=== PATIENT | female | born 1975 | race African-American/Black ===

== ENCOUNTER 2017-05-20 16:53 | Inpatient (IN) | payer OTHER ==
[2017-05-20 18:02] VITALS: BMI 25.7
--- NOTE | 2017-05-20 20:51 | HP ---
CIWA Score - CIWA Score Nausea/Vomitin-No Nausea/No Vomiting Muscle Tremors: 4-Moderate,w/Arms Extend Anxiety: 4-Mod. Anxious/Guarded Agitation: 1-Slight > Activity Paroxysmal Sweats: 3 Orientation: 1-Uncertain about Date Tacttile Disturbances: 0-None Auditory Disturbances: 0-None Visual Disturbances: 0-None Headache: 2-Mild CIWA-Ar Total Score: 15 Admission ROS S - HPI Chief Complaint: Alcohol withdrawal symptoms Allergies/Adverse Reactions: Allergies Allergy/AdvReac Type Severity Reaction Status Date / Time No Known Allergies Allergy Verified 03/07/12 14:40 History of Present Illness: 41 years old female with a long history of alcohol dependence is admitted to detox. Patient has been in previous detox and reports a year of sobriety. She has past medical history of HTN, depression and suicide attempt in 2017. Denies suicidal ideation at this time. Exam Limitations: No Limitations - Ebola screening Have you traveled outside of the country in the last 21 days: No Have you had contact with anyone from an Ebola affected area: No Have you been sick,other than usual withdrawal symptoms: No Do you have a fever: No - Review of Systems Constitutional: Chills, Loss of Appetite, Malaise, Night Sweats, Changes in sleep EENT: reports: Other (right eye redness from trauma) Respiratory: reports: No Symptoms reported Cardiac: reports: No Symptoms Reported GI: reports: Poor Appetite, Poor Fluid Intake, Abdominal cramping : reports: No Symptoms Reported Musculoskeletal: reports: No Symptoms Reported Integumentary: reports: Dryness, Flushing, Sweating Endocrine: reports: No Symptoms Reported Hematology: reports: No Symptoms Reported Psychiatric: reports: Agitated, Anxious Other Systems: Reviewed and Negative Patient History - Patient Medical History Hx Anemia: No Hx Asthma: No Hx Chronic Obstructive Pulmonary Disease (COPD): No Hx Cancer: No Hx Cardiac Disorders: No Hx Congestive Heart Failure: No Hx Hypertension: Yes Hx Hypercholesterolemia: No Hx Pacemaker: No HX Cerebrovascular Accident: No Hx Seizures: No Hx Dementia: No Hx Diabetes: No Hx Gastrointestinal Disorders: No Hx Liver Disease: No Hx Genitourinary Disorders: No Hx Sexually Transmitted Disorders: No Hx Renal Disease (ESRD): No Hx Thyroid Disease: No Hx Human Immunodeficiency Virus (HIV): No (Negative 2016) Hx Hepatitis C: No (Negative 2017) Hx Depression: Yes Hx Suicide Attempt: No Hx Bipolar Disorder: Yes Hx Schizophrenia: Yes - Patient Surgical History Past Surgical History: No Hx Neurologic Surgery: No Hx Cataract Extraction: No Hx Cardiac Surgery: No Hx Lung Surgery: No Hx Breast Surgery: No Hx Breast Biopsy: No Hx Abdominal Surgery: No Hx Appendectomy: No Hx Cholecystectomy: No Hx Genitourinary Surgery: No Hx Section: No Hx Orthopedic Surgery: No Anesthesia Reaction: No - PPD History Previous Implant?: Yes Date: 03/09/12 PPD to be Administered?: Yes - Reproductive History Patient is a Female of Child Bearing Age (11 -55 yrs old): Yes Last Menstrual Period: 05/19/17 Patient : No - Smoking Cessation Smoking history: Current every day smoker Have you smoked in the past 12 months: Yes Aproximately how many cigarettes per day: 10 Hx Chewing Tobacco Use: No Initiated information on smoking cessation: Yes 'Breaking Loose' booklet given: 05/20/17 - Substance & Tx. History Hx Alcohol Use: Yes Hx Substance Use: Yes Substance Use Type: Cocaine, Marijuana Hx Substance Use Treatment: Yes ([facility]) - Substances Abused Cocaine Route: Smoking Frequency: 3-6 times per week Amount used: $80 Age of first use: 24 Date of Last Use: 05/19/17 Marijuana/Hashish Route: Smoking Frequency: Daily Amount used: 2 blounts Age of first use: 17 Date of Last Use: 05/19/17 Alcohol Route: Oral Frequency: Daily Amount used: 12 beers Age of first use: 13 Date of Last Use: 05/20/17 Family Disease History - Family Disease History Family Disease History: Respiratory: Mother (COPD- ) Admission Physical Exam [facility] - Vital Signs Vital Signs: Vital Signs - 24 hr 05/20/17 17:56 Temperature 98.1 F Pulse Rate 84 Respiratory 18 Rate Blood Pressure 140/95 - Physical General Appearance: Yes: Moderate Distress HEENTM: Yes: EOMI, Normal Voice, BER[place] Respiratory: Yes: Lungs Clear, Normal Breath Sounds, No Respiratory Distress Neck: Yes: Supple Breast: Yes: Breast Exam Deferred Cardiology: Yes: Regular Rate, S1, S2 Abdominal: Yes: Normal Bowel Sounds, Soft Genitourinary: Yes: Within Normal Limits Back: Yes: Within Normal Limits Musculoskeletal: Yes: Within Normal Limits Extremities: Yes: Tremors Neurological: Yes: Alert, Normal Mood/Affect, Normal Response Integumentary: Yes: Dry Lymphatic: Yes: Within Normal Limits - Diagnostic (1) Alcohol dependence with uncomplicated withdrawal Current Visit: Yes Status: Chronic (2) Cocaine dependence Current Visit: Yes Status: Chronic (3) Essential hypertension Current Visit: Yes Status: Chronic (4) cannabis dependence Current Visit: Yes Status: Chronic Cleared for Admission [facility] - Detox or Rehab [facility] Level of Care: Medically Managed Detox Regimen/Protocol: Librium [facility] Breath Alcohol Content Breath Alcohol Content: 0.043 Urine Pregancy Test - Result Urine Test Results: Negative- NO Line Present Urine Drug Screen - Results Drug Screen Negative: No Urine Drug Screen Results: REGINALDO-Cocaine
[2017-05-20] MEDS ORDERED: NICOTINE POLACRILEX 2 MG GUM BUC PRN (21:05)
[2017-05-20] MEDS ORDERED: MAGNESIUM CITRATE 300 ML BOTTLE PO PRN (21:05)
[2017-05-20] MEDS ORDERED: IBUPROFEN 400 MG TABLET (FP) PO PRN (21:05)
[2017-05-20] MEDS ORDERED: ACETAMINOPHEN 325 MG TABLET (FP) PO PRN (21:05)
[2017-05-20] MEDS ORDERED: chlordiazePOXIDE HCL 25 MG CAPSULE PO PRN (21:05)
[2017-05-20] MEDS ORDERED: LOPERAMIDE HCL 2 MG CAPSULE PO PRN (21:05)
[2017-05-20] MEDS ORDERED: MAG HYDROX/AL HYDROX/SIMETH 30 ML UNIT-DOSE CUP PO PRN (21:05)
[2017-05-20] MEDS ORDERED: guaiFENesin/D-METHORPHAN HB 10 ML UNIT-DOSE CUPS PO PRN (21:05)
[2017-05-20] MEDS ORDERED: MENTHOL/PHENOL 1 EACH UD MM PRN (21:05)
[2017-05-20] MEDS ORDERED: P-EPHED 60MG/TRIPROLIDI 2.5MG TABLET PO PRN (21:05)
[2017-05-21] MEDS: chlordiazePOXIDE HCL 25 MG CAPSULE PO SCH ×5 (00:56→22:21)
[2017-05-21] MEDS: THIAMINE HCL 100 MG TABLET (FP) PO SCH ×2 (01:20→22:21)
[2017-05-21] MEDS ORDERED: cloNIDine HCL 0.1 MG TABLET PO ONE (06:54)
--- NOTE | 2017-05-21 07:40 | CONSULT ---
[facility] Psychiatric Consult - Data Date of interview: 05/21/17 Admission source: [facility] Identifying data: This is 41 years old female with Schizophrenia, multiple psychiatric hospitalization history , intoxicated with: Alcohol, Cannabis and Nicotine Substance Abuse History: - Smoking Cessation. Smoking history: Current every day smoker. Have you smoked in the past 12 months: Yes. Aproximately how many cigarettes per day: 10. Hx Chewing Tobacco Use: No. Initiated information on smoking cessation: Yes. 'Breaking Loose' booklet given: 05/20/17. - Substance & Tx. History. Hx Alcohol Use: Yes. Hx Substance Use: Yes. Substance Use Type : Cocaine, Marijuana. Hx Substance Use Treatment: Yes ([facility] - Substances Abused. Cocaine. Route: Smoking. Frequency: 3-6 times per week. Amount used: $80. Age of first use: 24. Date of Last Use: 05/19/17. Marijuana/ Hashish. Route: Smoking. Frequency: Daily. Amount used: 2 blounts. Age of first use: 17. Date of Last Use: 05/19/17 Medical History: HTN, Psychiatric History: Patient reports hisatory of sSCHIZOPHRENIA , WITH MULTIPLE PSYCHIATRIC ADMISSIONS , MOST RECENTLY AT [id number] ON [address], REPORTS TAKING PRIOR TO ADMISSION: DEPAKOTE 250MG POQD, 500MG PO QHS. RISPERDAL 1MG POQD Physical/Sexual Abuse/Trauma History: Denies Additional Comment: DEPAKOTE 250MG POQD, 500MG PO QHS. RISPERDAL 1MG POQD Mental Status Exam - Mental Status Exam Alert and Oriented to: Person Cognitive Function: Fair Patient Appearance: Unkempt Mood: Sad Affect: Flat Patient Behavior: Sedated Speech Pattern: Delayed Voice Loudness: Mildly Soft/Quiet Thought Process: Circumstantial Thought Disorder: Being Controlled Hallucinations: Denies Suicidal Ideation: Denies Homicidal Ideation: Denies Insight/Judgement: Fair Sleep: Difficulty falling asleep Appetite: Weight loss Muscle strength/Tone: Mild Hypotonicity Gait/Station: Shuffling Additional Comments: DEPAKOTE 250MG POQD, 500MG PO QHS. RISPERDAL 1MG POQD Psychiatric Findings - Problem List ([place] 1, 2,3) (1) Alcohol dependence with uncomplicated withdrawal Current Visit: Yes Status: Chronic (2) Cocaine dependence Current Visit: Yes Status: Chronic (3) cannabis dependence Current Visit: Yes Status: Chronic (4) Alcohol dependence Current Visit: No Status: Active (5) bipolar disorder with depression Current Visit: No Status: Active - Initial Treatment Plan Initial Treatment Plan: DEPAKOTE 250MG POQD, 500MG PO QHS. RISPERDAL 1MG POQD
--- NOTE | 2017-05-21 09:54 | PN ---
BHS CIWA - CIWA Score Nausea/Vomitin Muscle Tremors: 3 Anxiety: 2 Agitation: 2 Paroxysmal Sweats: 1-Minimal Palms Moist Orientation: 0-Oriented Tacttile Disturbances: 1-Very Mild Itch/Numbness Auditory Disturbances: 1-Very Mild Visual Disturbances: 0-None Headache: 2-Mild CIWA-Ar Total Score: 15 BHS Progress Note (SOAP) Subjective: ALERT,IRRITABLE,ANXIOUS,INTERRUPTED SLEEP,TREMOR,PAIN IN THE BODY AND BACK Objective: 05/21/17 09:49 Vital Signs Temperature 97.5 F L 05/21/17 06:00 Pulse Rate 60 05/21/17 07:30 Respiratory Rate 18 05/21/17 07:30 Blood Pressure 152/92 05/21/17 07:30 O2 Sat by Pulse Oximetry (%) EKG SINUS BRADYCARDIA 59/MIN INVERTED T IN 2,3.AVF,V5,V6 NO CHEST PAIN,NO SOB,NO DIZZINESS LABS PENDING Assessment: 05/21/17 09:53 WITHDRAWAL SYMPTOM Plan: CONTINUE DETOX
[2017-05-21 10:20] LABS: HEMATOCRIT 38.5 % (32.4-45.2); HEMOGLOBIN 11.8 GM/dL (10.7-15.3); MCH 23.4 pg (25.7-33.7); MCHC 30.7 g/dl (32.0-36.0); MEAN CELL VOLUME 76.2 fl (80-96); MEAN PLT VOLUME 9.6 fl (7.5-11.1); PLATELET COUNT 163 K/MM3 (134-434); RBC 5.05 M/mm3 (3.60-5.2); RDW 15.9 % (11.6-15.6); WHITE BLOOD COUNT 4.7 K/mm3 (4.0-10.0)
[2017-05-21 10:40] LABS: CHLORIDE 101 mmol/L (98-107); POTASSIUM 3.6 mmol/L (3.5-5.1); SODIUM 140 mmol/L (136-145)
[2017-05-21 10:51] LABS: ALBUMIN 3.2 g/dl (3.4-5.0); ALK PHOS 90 U/L (45-117); ANION GAP 6 (8-16); BILIRUBIN,TOTAL 0.6 mg/dL (0.2-1.0); BLOOD UREA NITROGEN 19 mg/dL (7-18); CALCIUM 8.7 mg/dL (8.5-10.1); CO2 33 mmol/L (21-32); GLUCOSE,RANDOM 114 mg/dL (74-106); SGOT/AST 28 U/L (15-37); SGPT/ALT 31 U/L (12-78); TOT PROT 6.8 g/dl (6.4-8.2)
[2017-05-21] MEDS: risperiDONE 1 MG TABLET (FP) PO SCH (10:54)
[2017-05-21] MEDS: DIVALPROEX SODIUM 250 MG TABLET E.C. (FP) PO SCH (10:54)
[2017-05-21] MEDS: PRENATAL VITAMINS W/ FOLIC ACID TABLET (FP) PO SCH (10:54)
[2017-05-21] MEDS: NICOTINE 14 MG/24 HOURS TOPICAL PATCH TD SCH (10:54)
--- NOTE | 2017-05-21 11:03 | EKG ---
Test Reason : Blood Pressure : / mmHG Vent. Rate : 065 BPM Atrial Rate : 065 BPM P-R Int : 144 ms QRS Dur : 076 ms QT Int : 410 ms P-R-T Axes : 027 -51 031 degrees QTc Int : 426 ms NORMAL SINUS RHYTHM LEFT ANTERIOR FASCICULAR BLOCK MINIMAL VOLTAGE CRITERIA FOR LVH, MAY BE NORMAL VARIANT NONSPECIFIC ST AND T WAVE ABNORMALITY ABNORMAL ECG NO PREVIOUS ECGS AVAILABLE Confirmed by FRANKIE FREEMAN, HILDA ([id number]) on 05/21/2017 11:03:07 AM Referred By: Confirmed By:HILDA DAVID MD
--- NOTE | 2017-05-21 14:54 | EKG ---
Test Reason : Blood Pressure : / mmHG Vent. Rate : 059 BPM Atrial Rate : 059 BPM P-R Int : 144 ms QRS Dur : 076 ms QT Int : 456 ms P-R-T Axes : 018 -52 -39 degrees QTc Int : 451 ms SINUS BRADYCARDIA LEFT ANTERIOR FASCICULAR BLOCK MINIMAL VOLTAGE CRITERIA FOR LVH, MAY BE NORMAL VARIANT T WAVE ABNORMALITY, CONSIDER LATERAL ISCHEMIA ABNORMAL ECG WHEN COMPARED WITH ECG OF 21-MAY-2017 00:35, T WAVE INVERSION MORE EVIDENT IN INFERIOR LEADS Confirmed by HILDA DAVID MD ([id number]) on 05/21/2017 2:54:14 PM Referred By: Confirmed By:HILDA DAVID MD
[2017-05-21 18:17] LABS: URINE APPEARANCE CLEAR; URINE BILIRUBIN NEGATIVE (NEGATIVE); URINE BLOOD NEGATIVE (NEGATIVE); URINE COLOR STRAW; URINE GLUCOSE (UA) NEGATIVE (NEGATIVE); URINE KETONE NEGATIVE (NEGATIVE); URINE LEUK ESTERASE NEGATIVE (NEGATIVE); URINE NITRITE NEGATIVE (NEGATIVE); URINE PROTEIN NEGATIVE (NEGATIVE); URINE UROBILINOGEN NEGATIVE mg/dL (0.2-1.0)
[2017-05-21] MEDS: DIVALPROEX SODIUM 500 MG TABLET E.C. PO SCH (22:21)
[2017-05-22] MEDS: chlordiazePOXIDE HCL 25 MG CAPSULE PO SCH ×3 (05:45→17:27)
[2017-05-22] MEDS: PRENATAL VITAMINS W/ FOLIC ACID TABLET (FP) PO SCH (10:46)
[2017-05-22] MEDS: DIVALPROEX SODIUM 250 MG TABLET E.C. (FP) PO SCH (10:47)
[2017-05-22] MEDS: NICOTINE 14 MG/24 HOURS TOPICAL PATCH TD SCH (10:47)
[2017-05-22] MEDS: risperiDONE 1 MG TABLET (FP) PO SCH (10:47)
[2017-05-22] MEDS: MAGNESIUM HYDROX 2400MG/30ML ORAL SUSPENSION 30 ML CUP PO PRN (10:49)
--- NOTE | 2017-05-22 14:25 | PN ---
S CIWA - CIWA Score Nausea/Vomitin Muscle Tremors: 3 Anxiety: 2 Agitation: 2 Paroxysmal Sweats: 1-Minimal Palms Moist Orientation: 0-Oriented Tacttile Disturbances: 1-Very Mild Itch/Numbness Auditory Disturbances: 1-Very Mild Visual Disturbances: 0-None Headache: 2-Mild CIWA-Ar Total Score: 15 BHS Progress Note (SOAP) Subjective: ALERT,IRRITABLE,ANXIOUS,INTERRUPTED SLEEP,TREMOR Objective: 05/22/17 14:23 Vital Signs Temperature 97.9 F 05/22/17 10:19 Pulse Rate 69 05/22/17 10:19 Respiratory Rate 18 05/22/17 10:19 Blood Pressure 156/99 05/22/17 10:19 O2 Sat by Pulse Oximetry (%) 05/22/17 14:24 Laboratory Last Values WBC 4.7 K/mm3 (4.0-10.0) 05/21/17 07:00 RBC 5.05 M/mm3 (3.60-5.2) 05/21/17 07:00 Hgb 11.8 GM/dL (10.7-15.3) 05/21/17 07:00 Hct 38.5 % (32.4-45.2) 05/21/17 07:00 MCV 76.2 fl (80-96) L 05/21/17 07:00 MCH 23.4 pg (25.7-33.7) L 05/21/17 07:00 MCHC 30.7 g/dl (32.0-36.0) L 05/21/17 07:00 RDW 15.9 % (11.6-15.6) H 05/21/17 07:00 Plt Count 163 K/MM3 (134-434) D 05/21/17 07:00 MPV 9.6 fl (7.5-11.1) 05/21/17 07:00 Sodium 140 mmol/L (136-145) 05/21/17 07:00 Potassium 3.6 mmol/L (3.5-5.1) 05/21/17 07:00 Chloride 101 mmol/L (98-107) 05/21/17 07:00 Carbon Dioxide 33 mmol/L (21-32) H 05/21/17 07:00 Anion Gap 6 (8-16) L 05/21/17 07:00 BUN 19 mg/dL (7-18) H 05/21/17 07:00 Creatinine 1.0 mg/dL (0.55-1.02) 05/21/17 07:00 Creat Clearance w eGFR > 60 (>60) 05/21/17 07:00 Random Glucose 114 mg/dL (74-106) H 05/21/17 07:00 Calcium 8.7 mg/dL (8.5-10.1) 05/21/17 07:00 Total Bilirubin 0.6 mg/dL (0.2-1.0) D 05/21/17 07:00 AST 28 U/L (15-37) 05/21/17 07:00 ALT 31 U/L (12-78) 05/21/17 07:00 Alkaline Phosphatase 90 U/L (45-117) 05/21/17 07:00 Total Protein 6.8 g/dl (6.4-8.2) 05/21/17 07:00 Albumin 3.2 g/dl (3.4-5.0) L 05/21/17 07:00 Urine Color Straw 05/20/17 17:00 Urine Appearance Clear 05/20/17 17:00 Urine pH 6.0 (5.0-8.0) 05/20/17 17:00 Ur Specific [place] 1.006 (1.001-1.035) 05/20/17 17:00 Urine Protein Negative (NEGATIVE) 05/20/17 17:00 Urine Glucose (UA) Negative (NEGATIVE) 05/20/17 17:00 Urine Ketones Negative (NEGATIVE) 05/20/17 17:00 Urine Blood Negative (NEGATIVE) 05/20/17 17:00 Urine Nitrite Negative (NEGATIVE) 05/20/17 17:00 Urine Bilirubin Negative (NEGATIVE) 05/20/17 17:00 Urine Urobilinogen Negative mg/dL (0.2-1.0) 05/20/17 17:00 Ur Leukocyte Esterase Negative (NEGATIVE) 05/20/17 17:00 RPR Titer Nonreactive (NONREACTIVE) 05/21/17 07:00 Hepatitis C Antibody <0.1 s/co ratio (0.0-0.9) 05/20/17 07:00 HIV 1&2 Antibody Screen Negative 05/21/17 08:00 HIV P24 Antigen Negative 05/21/17 08:00 Assessment: 05/22/17 14:24 WITHDRAWAL SYMPTOM Plan: CONTINUE DETOX
[2017-05-22] MEDS: DIVALPROEX SODIUM 500 MG TABLET E.C. PO SCH (22:31)
[2017-05-22] MEDS: chlordiazePOXIDE 5 MG CAPSULE PO SCH (22:31)
[2017-05-22] MEDS: THIAMINE HCL 100 MG TABLET (FP) PO SCH (22:31)
[2017-05-22] MEDS: amLODIPine BESYLATE 5 MG TABLET (FP) PO SCH (23:30)
[2017-05-23] MEDS: chlordiazePOXIDE 5 MG CAPSULE PO SCH ×3 (05:49→17:26)
[2017-05-23] MEDS: DIVALPROEX SODIUM 250 MG TABLET E.C. (FP) PO SCH (10:51)
[2017-05-23] MEDS: amLODIPine BESYLATE 5 MG TABLET (FP) PO SCH (10:52)
[2017-05-23] MEDS: PRENATAL VITAMINS W/ FOLIC ACID TABLET (FP) PO SCH (10:52)
[2017-05-23] MEDS: risperiDONE 1 MG TABLET (FP) PO SCH (10:52)
[2017-05-23] MEDS: NICOTINE 14 MG/24 HOURS TOPICAL PATCH TD SCH (10:52)
--- NOTE | 2017-05-23 13:32 | PN ---
S Progress Note (SOAP) Subjective: ALERT,IRRITABLE,ANXIOUS,INTERRUPTED SLEEP Objective: 05/23/17 13:31 Vital Signs Temperature 97.7 F 05/23/17 10:16 Pulse Rate 72 05/23/17 10:16 Respiratory Rate 20 05/23/17 10:16 Blood Pressure 156/85 05/23/17 10:16 O2 Sat by Pulse Oximetry (%) Assessment: 05/23/17 13:31 WITHDRAWAL SYMPTOM Plan: CONTINUE DETOX,DISCHARGE IN AM
[2017-05-23] MEDS: MAGNESIUM HYDROX 2400MG/30ML ORAL SUSPENSION 30 ML CUP PO PRN (19:46)
[2017-05-23] MEDS: chlordiazePOXIDE HCL 10 MG CAPSULE PO SCH (22:34)
[2017-05-23] MEDS: THIAMINE HCL 100 MG TABLET (FP) PO SCH (22:34)
[2017-05-23] MEDS: DIVALPROEX SODIUM 500 MG TABLET E.C. PO SCH (22:34)
[2017-05-24] MEDS: chlordiazePOXIDE HCL 10 MG CAPSULE PO SCH ×2 (06:30→10:49)
[2017-05-24 10:20] VITALS: BP 143/98; PULSE 75; TEMP 97.2
[2017-05-24] MEDS: risperiDONE 1 MG TABLET (FP) PO SCH (10:49)
[2017-05-24] MEDS: amLODIPine BESYLATE 5 MG TABLET (FP) PO SCH (10:49)
[2017-05-24] MEDS: PRENATAL VITAMINS W/ FOLIC ACID TABLET (FP) PO SCH (10:49)
[2017-05-24] MEDS: DIVALPROEX SODIUM 250 MG TABLET E.C. (FP) PO SCH (10:49)
[2017-05-24] MEDS: NICOTINE 14 MG/24 HOURS TOPICAL PATCH TD SCH (10:50)
--- NOTE | 2017-05-24 10:50 | DS ---
[facility] Detox Discharge Summary Admission Date: 05/20/17 Discharge Date: 05/24/17 - History Present History: Alcohol Dependence - Physical Exam Results Vital Signs: Vital Signs Temperature 97.2 F L 05/24/17 10:20 Pulse Rate 75 05/24/17 10:20 Respiratory Rate 18 05/24/17 10:20 Blood Pressure 143/98 05/24/17 10:20 O2 Sat by Pulse Oximetry (%) Pertinent Admission Physical Exam Findings: withdrawal sx Vital Signs Temperature 97.2 F L 05/24/17 10:20 Pulse Rate 75 05/24/17 10:20 Respiratory Rate 18 05/24/17 10:20 Blood Pressure 143/98 05/24/17 10:20 O2 Sat by Pulse Oximetry (%) Laboratory Last Values WBC 4.7 K/mm3 (4.0-10.0) 05/21/17 07:00 RBC 5.05 M/mm3 (3.60-5.2) 05/21/17 07:00 Hgb 11.8 GM/dL (10.7-15.3) 05/21/17 07:00 Hct 38.5 % (32.4-45.2) 05/21/17 07:00 MCV 76.2 fl (80-96) L 05/21/17 07:00 MCH 23.4 pg (25.7-33.7) L 05/21/17 07:00 MCHC 30.7 g/dl (32.0-36.0) L 05/21/17 07:00 RDW 15.9 % (11.6-15.6) H 05/21/17 07:00 Plt Count 163 K/MM3 (134-434) D 05/21/17 07:00 MPV 9.6 fl (7.5-11.1) 05/21/17 07:00 Sodium 140 mmol/L (136-145) 05/21/17 07:00 Potassium 3.6 mmol/L (3.5-5.1) 05/21/17 07:00 Chloride 101 mmol/L (98-107) 05/21/17 07:00 Carbon Dioxide 33 mmol/L (21-32) H 05/21/17 07:00 Anion Gap 6 (8-16) L 05/21/17 07:00 BUN 19 mg/dL (7-18) H 05/21/17 07:00 Creatinine 1.0 mg/dL (0.55-1.02) 05/21/17 07:00 Creat Clearance w eGFR > 60 (>60) 05/21/17 07:00 Random Glucose 114 mg/dL (74-106) H 05/21/17 07:00 Calcium 8.7 mg/dL (8.5-10.1) 05/21/17 07:00 Total Bilirubin 0.6 mg/dL (0.2-1.0) D 05/21/17 07:00 AST 28 U/L (15-37) 05/21/17 07:00 ALT 31 U/L (12-78) 05/21/17 07:00 Alkaline Phosphatase 90 U/L (45-117) 05/21/17 07:00 Total Protein 6.8 g/dl (6.4-8.2) 05/21/17 07:00 Albumin 3.2 g/dl (3.4-5.0) L 05/21/17 07:00 Urine Color Straw 05/20/17 17:00 Urine Appearance Clear 05/20/17 17:00 Urine pH 6.0 (5.0-8.0) 05/20/17 17:00 Ur Specific [place] 1.006 (1.001-1.035) 05/20/17 17:00 Urine Protein Negative (NEGATIVE) 05/20/17 17:00 Urine Glucose (UA) Negative (NEGATIVE) 05/20/17 17:00 Urine Ketones Negative (NEGATIVE) 05/20/17 17:00 Urine Blood Negative (NEGATIVE) 05/20/17 17:00 Urine Nitrite Negative (NEGATIVE) 05/20/17 17:00 Urine Bilirubin Negative (NEGATIVE) 05/20/17 17:00 Urine Urobilinogen Negative mg/dL (0.2-1.0) 05/20/17 17:00 Ur Leukocyte Esterase Negative (NEGATIVE) 05/20/17 17:00 RPR Titer Nonreactive (NONREACTIVE) 05/21/17 07:00 Hepatitis C Antibody <0.1 s/co ratio (0.0-0.9) 05/20/17 07:00 HIV 1&2 Antibody Screen Negative 05/21/17 08:00 HIV P24 Antigen Negative 05/21/17 08:00 lab noted - Treatment Hospital Course: Detox Protocol Followed, Detoxed Safely, Responded well, Discharged Condition Good, Rehab Referral Accepted Patient has Accepted a Rehab Referral to: as per counselor arranged - Medication Discharge Medications: Ambulatory Orders Divalproex [Depakote -] 250 mg PO DAILY #30 tablet.ec 05/21/17 Divalproex [Depakote -] 500 mg PO HS #30 tablet.ec 05/21/17 Risperidone [Risperdal -] 1 mg PO DAILY #30 tablet 05/21/17 - Diagnosis (1) Alcohol dependence with uncomplicated withdrawal Current Visit: Yes Status: Acute - AMA Did Patient Leave Against Medical Advice: No
[2017-05-24] MEDS ORDERED: SIMETHICONE 80 MG TAB.CHEW (FP) PO PRN (11:00)
[2017-05-24] MEDS ORDERED: DOCUSATE SODIUM 100 MG CAPSULE (FP) PO SCH (14:00)
[2017-05-24] MEDS ORDERED: SENNOSIDES 8.6MG TABLET (FP) PO SCH (22:00)
== END 2017-05-24 11:16 | disposition other institution (70) | DRG 774 ==
LOC: YASAS 16:53 → UNDOADMIN 20:03 → Y6N 20:03
PROVIDERS: ADMIT Internal Medicine; ATTEND Internal Medicine
PROC: HZ2ZZZZ Detoxification Services for Substance Abuse Treatment (ICD-10-PCS; principal; 2017-05-20)
PROC: HZ2ZZZZ Detoxification Services for Substance Abuse Treatment (ICD-10-PCS; 2017-05-20)
DX: F10.230 Alcohol dependence with withdrawal, uncomplicated (principal); F14.20 Cocaine dependence, uncomplicated; F12.20 Cannabis dependence, uncomplicated; F20.9 Schizophrenia, unspecified; F32.89 Other specified depressive episodes; F31.89 Other bipolar disorder
CPT/HCPCS: 36415; 80053; 81003; 85027; 86593; 86803; 87389; 93005; 93010; J0735; J2794

== ENCOUNTER 2017-05-24 12:48 | Inpatient (IN) | payer OTHER ==
[2017-05-24] MEDS ORDERED: P-EPHED 60MG/TRIPROLIDI 2.5MG TABLET PO PRN (14:15)
[2017-05-24] MEDS ORDERED: MAGNESIUM CITRATE 300 ML BOTTLE PO PRN (14:15)
[2017-05-24] MEDS ORDERED: MAGNESIUM HYDROX 2400MG/30ML ORAL SUSPENSION 30 ML CUP PO PRN (14:15)
[2017-05-24] MEDS ORDERED: ACETAMINOPHEN 325 MG TABLET (FP) PO PRN (14:15)
[2017-05-24] MEDS ORDERED: MENTHOL/PHENOL 1 EACH UD MM PRN (14:15)
[2017-05-24] MEDS ORDERED: LOPERAMIDE HCL 2 MG CAPSULE PO PRN (14:15)
[2017-05-24] MEDS ORDERED: NICOTINE POLACRILEX 2 MG GUM BUC PRN (14:15)
[2017-05-24] MEDS ORDERED: guaiFENesin/D-METHORPHAN HB 10 ML UNIT-DOSE CUPS PO PRN (14:15)
--- NOTE | 2017-05-24 14:15 | HP ---
[facility]UANPABLO [facility]REEM[facility] Rehab Assess/Revision - Admission History Admitted to Rehab from: [facility] Date of Admission to Rehab: 05/24/17 - Vital signs Vital Signs: Vital Signs Period Temp Pulse Resp BP Sys/[place] Pulse Ox Last 24 Hr 98.2 F 87 16 119/76 - Findings Detox History & Physical reviewed: Yes Concur with findings: Yes Comments/Additional Findings: FOR REHAB PROTOCOL Inpatient Rehab Admission - Initial Determination Are CD services needed?: Yes Free of communicable disease: Yes Not in need of hospitalization: Yes - Rehab Admission Criteria Previous failed treatment: Yes Poor recovery environment: Yes Comorbidities: Yes Lacks judgement: No Patient is meeting Inpatient Rehab admission criteria:: Yes
[2017-05-24] MEDS: THIAMINE HCL 100 MG TABLET (FP) PO SCH (21:28)
[2017-05-24] MEDS: DIVALPROEX SODIUM 500 MG TABLET E.C. PO SCH (21:28)
[2017-05-25] MEDS: risperiDONE 1 MG TABLET (FP) PO SCH (10:09)
[2017-05-25] MEDS: PRENATAL VITAMINS W/ FOLIC ACID TABLET (FP) PO SCH (10:09)
[2017-05-25] MEDS: DIVALPROEX SODIUM 250 MG TABLET E.C. (FP) PO SCH (10:09)
[2017-05-25] MEDS: amLODIPine BESYLATE 5 MG TABLET (FP) PO SCH (10:09)
[2017-05-25] MEDS: NICOTINE 14 MG/24 HOURS TOPICAL PATCH TD SCH (10:09)
--- NOTE | 2017-05-25 13:17 | HP ---
Psychiatrist Admission - Data Date of interview: 05/25/17 Admission source: [address] [place] [address] detox Identifying data: This is the second admission to [address] [place] [address] for this 41 years old AA single female mother of 4 (children reside with father in [facility]).Patient resides with boyfriend,supported by him. Medical History: HTN. Psychiatric History: First contact with psychiatrist was at 13 years old due to first psychotic episode(visual hallucinations,bizarre behavior).Patient was admitted to [facility] in [facility].She was dx with Schizoaffective disorder ,ADHD.She reports more than 20 psychiatric hospitalizations,most recent admission was last year to [facility] due to suicidal behavior, auditory hallucinations.Patient stopped to see her psychiatrist about 1 year ago ,obtaining psychotropic medications from local ER.Restarted Risperidone 1 mg po hs and Depakote 250 mg po am and 500 mg po hs prescribed by while in detox on [address] [place] [address]. Physical/Sexual Abuse/Trauma History: denies Vital Signs: Vital Signs - 24 hr 05/24/17 05/25/17 05/25/17 14:11 00:30 03:30 Temperature 98.2 F Pulse Rate 87 Respiratory 16 18 18 Rate Blood Pressure 119/76 05/25/17 05/25/17 07:09 09:14 Temperature 97.5 F L Pulse Rate 74 84 Respiratory 18 Rate Blood Pressure 131/90 136/86 Allergies/Adverse Reactions: Allergies Allergy/AdvReac Type Severity Reaction Status Date / Time No Known Allergies Allergy Verified 03/07/12 14:40 Date of last physical exam: 05/07/17 Concur with the findings of this exam: Yes - Substance Abuse/Tx History Hx Alcohol Use: Yes (reports drinking since 16 yo,6 packs of beer&vodka daily) Hx Substance Use: Yes (crack/cocaine since 25 yo,marijuana since 17yo) Substance Use Type: Alcohol, Cocaine, Marijuana Hx Substance Use Treatment: Yes (left AMA this program in 2011,longest abstinence 1 year) Mental Status Exam - Mental Status Exam Alert and Oriented to: Time, Place, Person Cognitive Function: Grossly Intact Patient Appearance: Unkempt Mood: Euthymic Affect: Normal Range Patient Behavior: Cooperative Speech Pattern: Clear Voice Loudness: Normal Thought Process: Goal Oriented Thought Disorder: Being Controlled Hallucinations: Denies Suicidal Ideation: Denies Homicidal Ideation: Denies Insight/Judgement: Fair Sleep: Fair Appetite: Good Muscle strength/Tone: Normal Gait/Station: Normal Psychiatric Findings - Problem List ([place] 1, 2,3) (1) Cocaine dependence Current Visit: Yes Status: Chronic (2) Essential hypertension Current Visit: Yes Status: Chronic (3) Alcohol dependence Current Visit: No Status: Chronic (4) cannabis dependence Current Visit: Yes Status: Chronic (5) Schizoaffective disorder Current Visit: Yes Status: Chronic (6) syncope alcohol related Current Visit: Yes Status: Resolved - Initial Treatment Plan Initial Treatment Plan: Continue Depakote 250 mg po am and 500 mg po hs, Risperdal 1 mg po daily.
[2017-05-25] MEDS: THIAMINE HCL 100 MG TABLET (FP) PO SCH (21:31)
[2017-05-25] MEDS: DIVALPROEX SODIUM 500 MG TABLET E.C. PO SCH (21:31)
[2017-05-25] MEDS: hydrOXYzine PAMOATE 50 MG CAPSULE (FP) PO PRN (21:32)
[2017-05-26] MEDS: NICOTINE 14 MG/24 HOURS TOPICAL PATCH TD SCH (09:58)
[2017-05-26] MEDS: risperiDONE 1 MG TABLET (FP) PO SCH (09:58)
[2017-05-26] MEDS: DIVALPROEX SODIUM 250 MG TABLET E.C. (FP) PO SCH (09:58)
[2017-05-26] MEDS: PRENATAL VITAMINS W/ FOLIC ACID TABLET (FP) PO SCH (09:58)
[2017-05-26] MEDS: amLODIPine BESYLATE 5 MG TABLET (FP) PO SCH (09:58)
[2017-05-26] MEDS: DIVALPROEX SODIUM 500 MG TABLET E.C. PO SCH (21:16)
[2017-05-26] MEDS: THIAMINE HCL 100 MG TABLET (FP) PO SCH (21:16)
[2017-05-26] MEDS: IBUPROFEN 400 MG TABLET (FP) PO PRN (22:42)
[2017-05-27] MEDS ORDERED: cloNIDine HCL 0.1 MG TABLET PO ONE (07:05)
[2017-05-27] MEDS: DIVALPROEX SODIUM 250 MG TABLET E.C. (FP) PO SCH (10:22)
[2017-05-27] MEDS: NICOTINE 14 MG/24 HOURS TOPICAL PATCH TD SCH (10:22)
[2017-05-27] MEDS: risperiDONE 1 MG TABLET (FP) PO SCH (10:22)
[2017-05-27] MEDS: PRENATAL VITAMINS W/ FOLIC ACID TABLET (FP) PO SCH (10:22)
[2017-05-27] MEDS: amLODIPine BESYLATE 5 MG TABLET (FP) PO SCH (10:23)
[2017-05-27] MEDS: IBUPROFEN 400 MG TABLET (FP) PO PRN (13:31)
[2017-05-27] MEDS: THIAMINE HCL 100 MG TABLET (FP) PO SCH (21:26)
[2017-05-27] MEDS: DIVALPROEX SODIUM 500 MG TABLET E.C. PO SCH (21:26)
[2017-05-28] MEDS ORDERED: ONDANSETRON *ODT* 4 MG TABLET SL PRN (10:42)
--- NOTE | 2017-05-28 10:51 | PN ---
BHS Progress Note (SOAP) Subjective: pt states feels nausea and constipated back and nerve pain for a pinch nerve Objective: 05/28/17 10:48 Vital Signs Temperature 97.5 F L 05/28/17 10:34 Pulse Rate 79 05/28/17 10:34 Respiratory Rate 18 05/28/17 10:34 Blood Pressure 152/98 05/28/17 10:34 O2 Sat by Pulse Oximetry (%) Laboratory Tests 05/25/17 09:25 Valproic Acid 58.490 aaox3 ambulating no acute distress Assessment: 05/28/17 10:49 N/V stomach ache Plan: colace 100mg TID gabentin 100mg tid zofran SL
[2017-05-28] MEDS: NICOTINE 14 MG/24 HOURS TOPICAL PATCH TD SCH (11:00)
[2017-05-28] MEDS: DIVALPROEX SODIUM 250 MG TABLET E.C. (FP) PO SCH (11:00)
[2017-05-28] MEDS: risperiDONE 1 MG TABLET (FP) PO SCH (11:00)
[2017-05-28] MEDS: amLODIPine BESYLATE 5 MG TABLET (FP) PO SCH (11:00)
[2017-05-28] MEDS: PRENATAL VITAMINS W/ FOLIC ACID TABLET (FP) PO SCH (11:00)
[2017-05-28] MEDS: DOCUSATE SODIUM 100 MG CAPSULE (FP) PO SCH ×2 (15:05→21:33)
[2017-05-28] MEDS: GABAPENTIN 100 MG CAPSULE (FP) PO SCH ×2 (15:06→21:33)
[2017-05-28] MEDS: THIAMINE HCL 100 MG TABLET (FP) PO SCH (21:33)
[2017-05-28] MEDS: DIVALPROEX SODIUM 500 MG TABLET E.C. PO SCH (21:33)
[2017-05-29] MEDS: DOCUSATE SODIUM 100 MG CAPSULE (FP) PO SCH ×3 (06:36→21:36)
[2017-05-29] MEDS: GABAPENTIN 100 MG CAPSULE (FP) PO SCH ×3 (06:36→21:36)
[2017-05-29] MEDS: PRENATAL VITAMINS W/ FOLIC ACID TABLET (FP) PO SCH (10:32)
[2017-05-29] MEDS: risperiDONE 1 MG TABLET (FP) PO SCH (10:32)
[2017-05-29] MEDS: DIVALPROEX SODIUM 250 MG TABLET E.C. (FP) PO SCH (10:32)
[2017-05-29] MEDS: NICOTINE 14 MG/24 HOURS TOPICAL PATCH TD SCH (10:32)
[2017-05-29] MEDS: amLODIPine BESYLATE 5 MG TABLET (FP) PO SCH (10:32)
[2017-05-29] MEDS: DIVALPROEX SODIUM 500 MG TABLET E.C. PO SCH (21:36)
[2017-05-29] MEDS: THIAMINE HCL 100 MG TABLET (FP) PO SCH (21:36)
[2017-05-29] MEDS: hydrOXYzine PAMOATE 50 MG CAPSULE (FP) PO PRN (21:37)
[2017-05-30] MEDS: GABAPENTIN 100 MG CAPSULE (FP) PO SCH ×3 (06:44→21:26)
[2017-05-30] MEDS: DOCUSATE SODIUM 100 MG CAPSULE (FP) PO SCH ×3 (06:44→21:26)
[2017-05-30] MEDS: DIVALPROEX SODIUM 250 MG TABLET E.C. (FP) PO SCH (09:54)
[2017-05-30] MEDS: PRENATAL VITAMINS W/ FOLIC ACID TABLET (FP) PO SCH (09:54)
[2017-05-30] MEDS: NICOTINE 14 MG/24 HOURS TOPICAL PATCH TD SCH (09:54)
[2017-05-30] MEDS: amLODIPine BESYLATE 5 MG TABLET (FP) PO SCH (09:54)
[2017-05-30] MEDS: risperiDONE 1 MG TABLET (FP) PO SCH (09:54)
[2017-05-30] MEDS: THIAMINE HCL 100 MG TABLET (FP) PO SCH (21:26)
[2017-05-30] MEDS: DIVALPROEX SODIUM 500 MG TABLET E.C. PO SCH (21:26)
[2017-05-30] MEDS: hydrOXYzine PAMOATE 50 MG CAPSULE (FP) PO PRN (22:23)
[2017-05-31] MEDS: DOCUSATE SODIUM 100 MG CAPSULE (FP) PO SCH ×3 (06:16→21:08)
[2017-05-31] MEDS: GABAPENTIN 100 MG CAPSULE (FP) PO SCH ×3 (06:16→21:07)
[2017-05-31] MEDS: DIVALPROEX SODIUM 250 MG TABLET E.C. (FP) PO SCH (09:42)
[2017-05-31] MEDS: PRENATAL VITAMINS W/ FOLIC ACID TABLET (FP) PO SCH (09:42)
[2017-05-31] MEDS: risperiDONE 1 MG TABLET (FP) PO SCH (09:42)
[2017-05-31] MEDS: NICOTINE 14 MG/24 HOURS TOPICAL PATCH TD SCH (09:42)
[2017-05-31] MEDS: amLODIPine BESYLATE 5 MG TABLET (FP) PO SCH (09:42)
[2017-05-31] MEDS: MAG HYDROX/AL HYDROX/SIMETH 30 ML UNIT-DOSE CUP PO PRN (15:08)
[2017-05-31] MEDS: DIVALPROEX SODIUM 500 MG TABLET E.C. PO SCH (21:07)
[2017-05-31] MEDS: hydrOXYzine PAMOATE 50 MG CAPSULE (FP) PO PRN (21:08)
[2017-05-31] MEDS: THIAMINE HCL 100 MG TABLET (FP) PO SCH (21:08)
[2017-06-01] MEDS: DOCUSATE SODIUM 100 MG CAPSULE (FP) PO SCH ×3 (06:52→21:35)
[2017-06-01] MEDS: GABAPENTIN 100 MG CAPSULE (FP) PO SCH ×3 (06:52→21:35)
[2017-06-01] MEDS: risperiDONE 1 MG TABLET (FP) PO SCH (10:17)
[2017-06-01] MEDS: DIVALPROEX SODIUM 250 MG TABLET E.C. (FP) PO SCH (10:17)
[2017-06-01] MEDS: NICOTINE 14 MG/24 HOURS TOPICAL PATCH TD SCH (10:17)
[2017-06-01] MEDS: PRENATAL VITAMINS W/ FOLIC ACID TABLET (FP) PO SCH (10:17)
[2017-06-01] MEDS: amLODIPine BESYLATE 5 MG TABLET (FP) PO SCH (10:17)
[2017-06-01] MEDS: DIVALPROEX SODIUM 500 MG TABLET E.C. PO SCH (21:35)
[2017-06-01] MEDS: THIAMINE HCL 100 MG TABLET (FP) PO SCH (21:35)
[2017-06-01] MEDS: hydrOXYzine PAMOATE 50 MG CAPSULE (FP) PO PRN (21:36)
[2017-06-02] MEDS: DOCUSATE SODIUM 100 MG CAPSULE (FP) PO SCH ×3 (06:20→21:54)
[2017-06-02] MEDS: GABAPENTIN 100 MG CAPSULE (FP) PO SCH ×3 (06:20→21:54)
[2017-06-02] MEDS: risperiDONE 1 MG TABLET (FP) PO SCH (09:46)
[2017-06-02] MEDS: PRENATAL VITAMINS W/ FOLIC ACID TABLET (FP) PO SCH (09:46)
[2017-06-02] MEDS: DIVALPROEX SODIUM 250 MG TABLET E.C. (FP) PO SCH (09:46)
[2017-06-02] MEDS: NICOTINE 14 MG/24 HOURS TOPICAL PATCH TD SCH (09:46)
[2017-06-02] MEDS: amLODIPine BESYLATE 5 MG TABLET (FP) PO SCH (09:46)
[2017-06-02] MEDS: DIVALPROEX SODIUM 500 MG TABLET E.C. PO SCH (21:54)
[2017-06-02] MEDS: THIAMINE HCL 100 MG TABLET (FP) PO SCH (21:54)
[2017-06-02] MEDS: hydrOXYzine PAMOATE 50 MG CAPSULE (FP) PO PRN (21:55)
[2017-06-03] MEDS: DOCUSATE SODIUM 100 MG CAPSULE (FP) PO SCH ×3 (06:56→21:32)
[2017-06-03] MEDS: GABAPENTIN 100 MG CAPSULE (FP) PO SCH ×3 (06:56→21:32)
[2017-06-03] MEDS: NICOTINE 14 MG/24 HOURS TOPICAL PATCH TD SCH (10:16)
[2017-06-03] MEDS: amLODIPine BESYLATE 5 MG TABLET (FP) PO SCH (10:17)
[2017-06-03] MEDS: DIVALPROEX SODIUM 250 MG TABLET E.C. (FP) PO SCH (10:17)
[2017-06-03] MEDS: PRENATAL VITAMINS W/ FOLIC ACID TABLET (FP) PO SCH (10:17)
[2017-06-03] MEDS: risperiDONE 1 MG TABLET (FP) PO SCH (10:17)
[2017-06-03] MEDS: MAG HYDROX/AL HYDROX/SIMETH 30 ML UNIT-DOSE CUP PO PRN (13:05)
[2017-06-03] MEDS: THIAMINE HCL 100 MG TABLET (FP) PO SCH (21:32)
[2017-06-03] MEDS: DIVALPROEX SODIUM 500 MG TABLET E.C. PO SCH (21:32)
[2017-06-03] MEDS: hydrOXYzine PAMOATE 50 MG CAPSULE (FP) PO PRN (21:32)
[2017-06-04] MEDS: IBUPROFEN 400 MG TABLET (FP) PO PRN (06:57)
[2017-06-04] MEDS: GABAPENTIN 100 MG CAPSULE (FP) PO SCH ×2 (06:57→13:32)
[2017-06-04] MEDS: DOCUSATE SODIUM 100 MG CAPSULE (FP) PO SCH ×3 (06:57→21:09)
[2017-06-04] MEDS: amLODIPine BESYLATE 5 MG TABLET (FP) PO SCH (10:16)
[2017-06-04] MEDS: PRENATAL VITAMINS W/ FOLIC ACID TABLET (FP) PO SCH (10:16)
[2017-06-04] MEDS: DIVALPROEX SODIUM 250 MG TABLET E.C. (FP) PO SCH (10:16)
[2017-06-04] MEDS: risperiDONE 1 MG TABLET (FP) PO SCH (10:17)
[2017-06-04] MEDS: NICOTINE 14 MG/24 HOURS TOPICAL PATCH TD SCH (10:17)
[2017-06-04] MEDS: MAG HYDROX/AL HYDROX/SIMETH 30 ML UNIT-DOSE CUP PO PRN (14:18)
--- NOTE | 2017-06-04 14:26 | PN ---
BHS Progress Note (SOAP) Subjective: patient c/o abdo/period pains gives h/o fibroids Objective: 06/04/17 14:24 Vital Signs - 24 hr 06/04/17 06/04/17 06/04/17 00:30 07:33 10:00 Temperature 98.2 F Pulse Rate 71 80 Respiratory 16 18 Rate Blood Pressure 116/83 124/80 Laboratory Tests 05/25/17 09:25 Valproic Acid 58.490 labs reviewed Assessment: 06/04/17 14:25 period pains 2/2 fibroids start naproxen bid protonix, d/c norvas start hctz
[2017-06-04] MEDS: HYDROCHLOROTHIAZIDE 12.5 MG CAPSULE (FP) PO SCH (14:57)
[2017-06-04] MEDS: PANTOPRAZOLE 40 MG TABLET (FP) PO SCH (14:57)
[2017-06-04] MEDS ORDERED: GABAPENTIN 100 MG CAPSULE (FP) PO SCH (15:00)
[2017-06-04] MEDS: THIAMINE HCL 100 MG TABLET (FP) PO SCH (21:09)
[2017-06-04] MEDS: DIVALPROEX SODIUM 500 MG TABLET E.C. PO SCH (21:09)
[2017-06-04] MEDS: GABAPENTIN 300 MG CAPSULE (FP) PO SCH (21:09)
[2017-06-04] MEDS: hydrOXYzine PAMOATE 50 MG CAPSULE (FP) PO PRN (21:11)
[2017-06-04] MEDS: NAPROXEN 500 MG TABLET (FP) PO SCH (21:11)
[2017-06-05] MEDS: GABAPENTIN 300 MG CAPSULE (FP) PO SCH ×3 (06:20→21:57)
[2017-06-05] MEDS: DOCUSATE SODIUM 100 MG CAPSULE (FP) PO SCH ×3 (06:20→21:57)
[2017-06-05] MEDS: PANTOPRAZOLE 40 MG TABLET (FP) PO SCH (09:47)
[2017-06-05] MEDS: PRENATAL VITAMINS W/ FOLIC ACID TABLET (FP) PO SCH (09:47)
[2017-06-05] MEDS: HYDROCHLOROTHIAZIDE 12.5 MG CAPSULE (FP) PO SCH (09:47)
[2017-06-05] MEDS: NICOTINE 14 MG/24 HOURS TOPICAL PATCH TD SCH (09:47)
[2017-06-05] MEDS: NAPROXEN 500 MG TABLET (FP) PO SCH ×2 (09:47→21:57)
[2017-06-05] MEDS: risperiDONE 1 MG TABLET (FP) PO SCH (09:47)
[2017-06-05] MEDS: DIVALPROEX SODIUM 250 MG TABLET E.C. (FP) PO SCH (09:47)
[2017-06-05] MEDS: THIAMINE HCL 100 MG TABLET (FP) PO SCH (21:57)
[2017-06-05] MEDS: DIVALPROEX SODIUM 500 MG TABLET E.C. PO SCH (21:57)
[2017-06-05] MEDS: hydrOXYzine PAMOATE 50 MG CAPSULE (FP) PO PRN (21:57)
[2017-06-06] MEDS: DOCUSATE SODIUM 100 MG CAPSULE (FP) PO SCH ×3 (06:20→21:38)
[2017-06-06] MEDS: GABAPENTIN 300 MG CAPSULE (FP) PO SCH ×3 (06:20→21:38)
[2017-06-06] MEDS: DIVALPROEX SODIUM 250 MG TABLET E.C. (FP) PO SCH (10:12)
[2017-06-06] MEDS: NICOTINE 14 MG/24 HOURS TOPICAL PATCH TD SCH (10:12)
[2017-06-06] MEDS: risperiDONE 1 MG TABLET (FP) PO SCH (10:12)
[2017-06-06] MEDS: NAPROXEN 500 MG TABLET (FP) PO SCH ×2 (10:12→21:38)
[2017-06-06] MEDS: PRENATAL VITAMINS W/ FOLIC ACID TABLET (FP) PO SCH (10:12)
[2017-06-06] MEDS: HYDROCHLOROTHIAZIDE 12.5 MG CAPSULE (FP) PO SCH (10:12)
[2017-06-06] MEDS: PANTOPRAZOLE 40 MG TABLET (FP) PO SCH (10:12)
[2017-06-06] MEDS: THIAMINE HCL 100 MG TABLET (FP) PO SCH (21:38)
[2017-06-06] MEDS: hydrOXYzine PAMOATE 50 MG CAPSULE (FP) PO PRN (21:38)
[2017-06-06] MEDS: DIVALPROEX SODIUM 500 MG TABLET E.C. PO SCH (21:38)
[2017-06-07] MEDS: DOCUSATE SODIUM 100 MG CAPSULE (FP) PO SCH ×3 (06:10→21:37)
[2017-06-07] MEDS: GABAPENTIN 300 MG CAPSULE (FP) PO SCH ×3 (06:10→21:37)
[2017-06-07] MEDS: DIVALPROEX SODIUM 250 MG TABLET E.C. (FP) PO SCH (10:11)
[2017-06-07] MEDS: NICOTINE 14 MG/24 HOURS TOPICAL PATCH TD SCH (10:11)
[2017-06-07] MEDS: NAPROXEN 500 MG TABLET (FP) PO SCH ×2 (10:11→21:37)
[2017-06-07] MEDS: HYDROCHLOROTHIAZIDE 12.5 MG CAPSULE (FP) PO SCH (10:11)
[2017-06-07] MEDS: PANTOPRAZOLE 40 MG TABLET (FP) PO SCH (10:11)
[2017-06-07] MEDS: PRENATAL VITAMINS W/ FOLIC ACID TABLET (FP) PO SCH (10:11)
[2017-06-07] MEDS: risperiDONE 1 MG TABLET (FP) PO SCH (10:11)
[2017-06-07] MEDS: MAG HYDROX/AL HYDROX/SIMETH 30 ML UNIT-DOSE CUP PO PRN (18:02)
[2017-06-07] MEDS: THIAMINE HCL 100 MG TABLET (FP) PO SCH (21:37)
[2017-06-07] MEDS: DIVALPROEX SODIUM 500 MG TABLET E.C. PO SCH (21:37)
[2017-06-08] MEDS: hydrOXYzine PAMOATE 50 MG CAPSULE (FP) PO PRN ×2 (01:32→21:39)
[2017-06-08] MEDS: GABAPENTIN 300 MG CAPSULE (FP) PO SCH ×3 (06:44→21:38)
[2017-06-08] MEDS: DOCUSATE SODIUM 100 MG CAPSULE (FP) PO SCH ×3 (06:44→21:38)
[2017-06-08] MEDS: NAPROXEN 500 MG TABLET (FP) PO SCH ×2 (10:07→21:38)
[2017-06-08] MEDS: NICOTINE 14 MG/24 HOURS TOPICAL PATCH TD SCH (10:07)
[2017-06-08] MEDS: PANTOPRAZOLE 40 MG TABLET (FP) PO SCH (10:07)
[2017-06-08] MEDS: DIVALPROEX SODIUM 250 MG TABLET E.C. (FP) PO SCH (10:07)
[2017-06-08] MEDS: PRENATAL VITAMINS W/ FOLIC ACID TABLET (FP) PO SCH (10:07)
[2017-06-08] MEDS: risperiDONE 1 MG TABLET (FP) PO SCH (10:07)
[2017-06-08] MEDS: HYDROCHLOROTHIAZIDE 12.5 MG CAPSULE (FP) PO SCH (10:07)
[2017-06-08] MEDS: THIAMINE HCL 100 MG TABLET (FP) PO SCH (21:38)
[2017-06-08] MEDS: DIVALPROEX SODIUM 500 MG TABLET E.C. PO SCH (21:38)
[2017-06-09] MEDS: DOCUSATE SODIUM 100 MG CAPSULE (FP) PO SCH ×3 (06:44→21:31)
[2017-06-09] MEDS: GABAPENTIN 300 MG CAPSULE (FP) PO SCH ×3 (06:44→21:30)
[2017-06-09] MEDS: DIVALPROEX SODIUM 250 MG TABLET E.C. (FP) PO SCH (10:05)
[2017-06-09] MEDS: HYDROCHLOROTHIAZIDE 12.5 MG CAPSULE (FP) PO SCH (10:05)
[2017-06-09] MEDS: risperiDONE 1 MG TABLET (FP) PO SCH (10:06)
[2017-06-09] MEDS: PRENATAL VITAMINS W/ FOLIC ACID TABLET (FP) PO SCH (10:06)
[2017-06-09] MEDS: PANTOPRAZOLE 40 MG TABLET (FP) PO SCH (10:06)
[2017-06-09] MEDS: NAPROXEN 500 MG TABLET (FP) PO SCH ×2 (10:06→21:30)
[2017-06-09] MEDS: NICOTINE 14 MG/24 HOURS TOPICAL PATCH TD SCH (10:06)
[2017-06-09] MEDS: hydrOXYzine PAMOATE 50 MG CAPSULE (FP) PO PRN (21:30)
[2017-06-09] MEDS: THIAMINE HCL 100 MG TABLET (FP) PO SCH (21:30)
[2017-06-09] MEDS: DIVALPROEX SODIUM 500 MG TABLET E.C. PO SCH (21:30)
[2017-06-10] MEDS: GABAPENTIN 300 MG CAPSULE (FP) PO SCH ×3 (06:22→21:26)
[2017-06-10] MEDS: DOCUSATE SODIUM 100 MG CAPSULE (FP) PO SCH ×3 (06:22→21:26)
[2017-06-10] MEDS: NICOTINE 14 MG/24 HOURS TOPICAL PATCH TD SCH (10:10)
[2017-06-10] MEDS: NAPROXEN 500 MG TABLET (FP) PO SCH ×2 (10:10→21:26)
[2017-06-10] MEDS: PRENATAL VITAMINS W/ FOLIC ACID TABLET (FP) PO SCH (10:10)
[2017-06-10] MEDS: DIVALPROEX SODIUM 250 MG TABLET E.C. (FP) PO SCH (10:10)
[2017-06-10] MEDS: PANTOPRAZOLE 40 MG TABLET (FP) PO SCH (10:11)
[2017-06-10] MEDS: risperiDONE 1 MG TABLET (FP) PO SCH (10:11)
[2017-06-10] MEDS: HYDROCHLOROTHIAZIDE 12.5 MG CAPSULE (FP) PO SCH (10:11)
[2017-06-10] MEDS: DIVALPROEX SODIUM 500 MG TABLET E.C. PO SCH (21:26)
[2017-06-10] MEDS: THIAMINE HCL 100 MG TABLET (FP) PO SCH (21:26)
[2017-06-10] MEDS: hydrOXYzine PAMOATE 50 MG CAPSULE (FP) PO PRN (21:26)
[2017-06-11] MEDS: DOCUSATE SODIUM 100 MG CAPSULE (FP) PO SCH ×3 (06:44→21:37)
[2017-06-11] MEDS: GABAPENTIN 300 MG CAPSULE (FP) PO SCH ×3 (06:44→21:37)
[2017-06-11] MEDS: PANTOPRAZOLE 40 MG TABLET (FP) PO SCH (10:37)
[2017-06-11] MEDS: NAPROXEN 500 MG TABLET (FP) PO SCH ×2 (10:37→21:37)
[2017-06-11] MEDS: HYDROCHLOROTHIAZIDE 12.5 MG CAPSULE (FP) PO SCH (10:37)
[2017-06-11] MEDS: risperiDONE 1 MG TABLET (FP) PO SCH (10:37)
[2017-06-11] MEDS: DIVALPROEX SODIUM 250 MG TABLET E.C. (FP) PO SCH (10:37)
[2017-06-11] MEDS: PRENATAL VITAMINS W/ FOLIC ACID TABLET (FP) PO SCH (10:37)
[2017-06-11] MEDS: NICOTINE 14 MG/24 HOURS TOPICAL PATCH TD SCH (10:38)
[2017-06-11] MEDS: MAG HYDROX/AL HYDROX/SIMETH 30 ML UNIT-DOSE CUP PO PRN (18:29)
[2017-06-11] MEDS: hydrOXYzine PAMOATE 50 MG CAPSULE (FP) PO PRN (21:36)
[2017-06-11] MEDS: DIVALPROEX SODIUM 500 MG TABLET E.C. PO SCH (21:37)
[2017-06-11] MEDS: THIAMINE HCL 100 MG TABLET (FP) PO SCH (21:38)
[2017-06-12] MEDS: GABAPENTIN 300 MG CAPSULE (FP) PO SCH ×3 (06:49→21:30)
[2017-06-12] MEDS: DOCUSATE SODIUM 100 MG CAPSULE (FP) PO SCH ×3 (06:50→21:30)
[2017-06-12] MEDS: risperiDONE 1 MG TABLET (FP) PO SCH (10:31)
[2017-06-12] MEDS: HYDROCHLOROTHIAZIDE 12.5 MG CAPSULE (FP) PO SCH (10:31)
[2017-06-12] MEDS: PANTOPRAZOLE 40 MG TABLET (FP) PO SCH (10:31)
[2017-06-12] MEDS: DIVALPROEX SODIUM 250 MG TABLET E.C. (FP) PO SCH (10:31)
[2017-06-12] MEDS: PRENATAL VITAMINS W/ FOLIC ACID TABLET (FP) PO SCH (10:31)
[2017-06-12] MEDS: NICOTINE 14 MG/24 HOURS TOPICAL PATCH TD SCH (10:31)
[2017-06-12] MEDS: NAPROXEN 500 MG TABLET (FP) PO SCH ×2 (10:31→21:30)
[2017-06-12] MEDS: hydrOXYzine PAMOATE 50 MG CAPSULE (FP) PO PRN (21:30)
[2017-06-12] MEDS: THIAMINE HCL 100 MG TABLET (FP) PO SCH (21:30)
[2017-06-12] MEDS: DIVALPROEX SODIUM 500 MG TABLET E.C. PO SCH (21:30)
[2017-06-13] MEDS: GABAPENTIN 300 MG CAPSULE (FP) PO SCH ×3 (06:43→21:40)
[2017-06-13] MEDS: DOCUSATE SODIUM 100 MG CAPSULE (FP) PO SCH ×3 (06:44→21:40)
[2017-06-13] MEDS: NAPROXEN 500 MG TABLET (FP) PO SCH ×2 (10:07→21:40)
[2017-06-13] MEDS: HYDROCHLOROTHIAZIDE 12.5 MG CAPSULE (FP) PO SCH (10:07)
[2017-06-13] MEDS: DIVALPROEX SODIUM 250 MG TABLET E.C. (FP) PO SCH (10:07)
[2017-06-13] MEDS: NICOTINE 14 MG/24 HOURS TOPICAL PATCH TD SCH (10:08)
[2017-06-13] MEDS: PANTOPRAZOLE 40 MG TABLET (FP) PO SCH (10:08)
[2017-06-13] MEDS: PRENATAL VITAMINS W/ FOLIC ACID TABLET (FP) PO SCH (10:08)
[2017-06-13] MEDS: risperiDONE 1 MG TABLET (FP) PO SCH (10:09)
[2017-06-13] MEDS: DIVALPROEX SODIUM 500 MG TABLET E.C. PO SCH (21:40)
[2017-06-13] MEDS: THIAMINE HCL 100 MG TABLET (FP) PO SCH (21:40)
[2017-06-13] MEDS: hydrOXYzine PAMOATE 50 MG CAPSULE (FP) PO PRN (21:41)
[2017-06-13] MEDS ORDERED: PT OWN MED DRAWER 7, Y5N ONE (21:41)
[2017-06-14] MEDS: GABAPENTIN 300 MG CAPSULE (FP) PO SCH ×3 (06:28→21:35)
[2017-06-14] MEDS: DOCUSATE SODIUM 100 MG CAPSULE (FP) PO SCH ×3 (06:29→21:35)
[2017-06-14] MEDS: HYDROCHLOROTHIAZIDE 12.5 MG CAPSULE (FP) PO SCH (10:22)
[2017-06-14] MEDS: NAPROXEN 500 MG TABLET (FP) PO SCH ×2 (10:22→21:35)
[2017-06-14] MEDS: PANTOPRAZOLE 40 MG TABLET (FP) PO SCH (10:22)
[2017-06-14] MEDS: PRENATAL VITAMINS W/ FOLIC ACID TABLET (FP) PO SCH (10:22)
[2017-06-14] MEDS: risperiDONE 1 MG TABLET (FP) PO SCH (10:22)
[2017-06-14] MEDS: DIVALPROEX SODIUM 250 MG TABLET E.C. (FP) PO SCH (10:22)
[2017-06-14] MEDS: NICOTINE 14 MG/24 HOURS TOPICAL PATCH TD SCH (10:23)
[2017-06-14] MEDS: DIVALPROEX SODIUM 500 MG TABLET E.C. PO SCH (21:35)
[2017-06-14] MEDS: hydrOXYzine PAMOATE 50 MG CAPSULE (FP) PO PRN (21:35)
[2017-06-14] MEDS: THIAMINE HCL 100 MG TABLET (FP) PO SCH (21:35)
[2017-06-15] MEDS: GABAPENTIN 300 MG CAPSULE (FP) PO SCH ×3 (06:16→21:46)
[2017-06-15] MEDS: DOCUSATE SODIUM 100 MG CAPSULE (FP) PO SCH ×3 (06:16→21:46)
[2017-06-15 07:05] VITALS: TEMP 97.2
[2017-06-15] MEDS: risperiDONE 1 MG TABLET (FP) PO SCH (10:27)
[2017-06-15] MEDS: DIVALPROEX SODIUM 250 MG TABLET E.C. (FP) PO SCH (10:27)
[2017-06-15] MEDS: PANTOPRAZOLE 40 MG TABLET (FP) PO SCH (10:27)
[2017-06-15] MEDS: NAPROXEN 500 MG TABLET (FP) PO SCH ×2 (10:27→21:46)
[2017-06-15] MEDS: NICOTINE 14 MG/24 HOURS TOPICAL PATCH TD SCH (10:27)
[2017-06-15] MEDS: HYDROCHLOROTHIAZIDE 12.5 MG CAPSULE (FP) PO SCH (10:27)
[2017-06-15] MEDS: PRENATAL VITAMINS W/ FOLIC ACID TABLET (FP) PO SCH (10:27)
--- NOTE | 2017-06-15 17:51 | PN ---
Psychiatric Progress Note Vital Signs: Vital Signs Period Temp Pulse Resp BP Sys/[place]land Pulse Ox Last 24 Hr 97.2 F 76-76 18-18 125-138/86-89 Date of Session: 06/15/17 Chief Complaint:: Discharge visit HPI: Patient addressed Alcohol,Cocaine and Cannabis dependence comorbid with Schizoaffective disorder. ROS: Significant for HTN. Current Medications: Active Medications Generic Name Dose Route Start Last Admin Trade Name Freq PRN Reason Stop Dose Admin Acetaminophen 650 mg 05/24/17 14:15 06/04/17 10:18 Tylenol - PO 650 mg Q4H PRN Administration FEVER Al Hydroxide/Mg Hydroxide 30 ml 05/24/17 14:15 06/11/17 18:29 Mylanta Oral Suspension - PO 30 ml Q6H PRN Administration DYSPEPSIA Divalproex Sodium 250 mg 05/25/17 10:00 06/15/17 10:27 Depakote - PO 250 mg DAILY STEPHANY Administration Divalproex Sodium 500 mg 05/24/17 22:00 06/14/17 21:35 Depakote - PO 500 mg HS STEPHANY Administration Docusate Sodium 100 mg 05/28/17 14:00 06/15/17 13:23 Colace - PO Not Given TID STEPHANY Eucalyptus/Menthol/Phenol/Sorbitol 1 each 05/24/17 14:15 Cepastat Lozenge - MM Q4H PRN SORE THROAT Gabapentin 300 mg 06/04/17 15:00 06/15/17 13:22 Neurontin - PO 300 mg TID STEPHANY Administration Guaifenesin 10 ml 05/24/17 14:15 Robitussin Dm - PO Q6H PRN COUGH Hydrochlorothiazide 12.5 mg 06/04/17 15:00 06/15/17 10:27 Hctz - PO 12.5 mg DAILY STEPHANY Administration Hydroxyzine Pamoate 50 mg 05/24/17 14:15 06/14/17 21:35 Vistaril - PO 50 mg Q4H PRN Administration AGITATION Loperamide HCl 4 mg 05/24/17 14:15 Imodium - PO Q6H PRN DIARRHEA Magnesium Citrate 300 ml 05/24/17 14:15 05/28/17 06:46 Citroma - PO 300 ml Q48H PRN Administration CONSTIPATION Magnesium Hydroxide 30 ml 05/24/17 14:15 05/27/17 10:24 Milk Of Magnesia - PO 30 ml DAILY PRN Administration CONSTIPATION Naproxen 500 mg 06/04/17 22:00 06/15/17 10:27 Naprosyn - PO 500 mg BID STEPHANY Administration Nicotine 14 mg 05/25/17 10:00 06/15/17 10:27 Nicoderm Patch - TD 14 mg DAILY STEPHANY Administration Nicotine Polacrilex 2 mg 05/24/17 14:15 05/27/17 13:29 Nicorette Gum - BUC 2 mg Q2H PRN Administration NICOTINE REPLACEMENT RX Ondansetron HCl 4 mg 05/28/17 10:42 05/28/17 11:41 Zofran Odt - SL 4 mg Q6H PRN Administration NAUSEA AND/OR VOMITING Pantoprazole Sodium 40 mg 06/04/17 15:00 06/15/17 10:27 Protonix - PO 40 mg DAILY STEPHANY Administration Multivit/Folic Acid/Iron 1 tab 05/25/17 10:00 06/15/17 10:27 Vitamins (Sjr) - PO 1 tab DAILY STEPHANY Administration Pseudoephedrine/Triprolidine 1 combo 05/24/17 14:15 Actifed - PO TID PRN NASAL CONGESTION Risperidone 1 mg 05/25/17 10:00 06/15/17 10:27 Risperdal - PO 1 mg DAILY STEPHANY Administration Thiamine HCl 100 mg 05/24/17 22:00 06/14/17 21:35 Vitamin B1 - PO 100 mg HS STEPHANY Administration Current Side Effect: No Lab tests ordered: No Lab tests reviewed: Yes Provider note:: Patient completed this program today.She has met her treatment goals and will continue to address her issues on outpatient basis at [facility].Patient reports finding that Depakote 500 mg po Neurontin, Risperdal help to cope with mood instability,anxiety,sleeping difficulties.Scripts for 30 days provided. Psychotherapy provided focusing on relapse prevention. PAtient is stable for discharge today. Total face to face time:: 30 Mental Status Exam - Mental Status Exam Alert and Oriented to: Time, Place, Person Cognitive Function: Grossly Intact Patient Appearance: Well Groomed Mood: Euthymic Affect: Mood Congruent Patient Behavior: Appropriate, Cooperative Speech Pattern: Clear Voice Loudness: Normal Thought Process: Goal Oriented Thought Disorder: Being Controlled Hallucinations: Denies Suicidal Ideation: Denies Homicidal Ideation: Denies Insight/Judgement: Fair Sleep: Fair Appetite: Good Muscle strength/Tone: Normal Gait/Station: Normal
[2017-06-15] MEDS: DIVALPROEX SODIUM 500 MG TABLET E.C. PO SCH (21:46)
[2017-06-15] MEDS: THIAMINE HCL 100 MG TABLET (FP) PO SCH (21:46)
[2017-06-15] MEDS: hydrOXYzine PAMOATE 50 MG CAPSULE (FP) PO PRN (21:47)
[2017-06-16] MEDS: GABAPENTIN 300 MG CAPSULE (FP) PO SCH (06:24)
[2017-06-16] MEDS: DOCUSATE SODIUM 100 MG CAPSULE (FP) PO SCH (06:25)
[2017-06-16 09:25] VITALS: BP 124/84; PULSE 77
[2017-06-16] MEDS: NICOTINE 14 MG/24 HOURS TOPICAL PATCH TD SCH (09:45)
[2017-06-16] MEDS: NAPROXEN 500 MG TABLET (FP) PO SCH (09:46)
[2017-06-16] MEDS: PANTOPRAZOLE 40 MG TABLET (FP) PO SCH (09:46)
[2017-06-16] MEDS: PRENATAL VITAMINS W/ FOLIC ACID TABLET (FP) PO SCH (09:46)
[2017-06-16] MEDS: DIVALPROEX SODIUM 250 MG TABLET E.C. (FP) PO SCH (09:46)
[2017-06-16] MEDS: risperiDONE 1 MG TABLET (FP) PO SCH (09:46)
[2017-06-16] MEDS: HYDROCHLOROTHIAZIDE 12.5 MG CAPSULE (FP) PO SCH (09:47)
== END 2017-06-16 10:20 | disposition home or self-care (01) | DRG 772 ==
LOC: YASAS 12:48 → Y3E 12:51
PROVIDERS: ADMIT Psychiatry & Neurology Psychiatry; ATTEND Psychiatry & Neurology Psychiatry
PROC: HZ42ZZZ Group Counseling for Substance Abuse Treatment, Cognitive-Behavioral (ICD-10-PCS; principal; 2017-05-24)
DX: F10.20 Alcohol dependence, uncomplicated (principal); F14.20 Cocaine dependence, uncomplicated; F12.20 Cannabis dependence, uncomplicated; F25.9 Schizoaffective disorder, unspecified; I10 Essential (primary) hypertension; R55 Syncope and collapse
CPT/HCPCS: 36415; 80164; J0735; J2794

== ENCOUNTER 2022-04-02 20:21 | Inpatient (IN) | payer OTHER ==
[2022-04-02 23:44] VITALS: BMI 34.2
[2022-04-03] MEDS ORDERED: BENZOCAINE/MENTHOL (CHLORASEPTIC ) LOZENGE MM PRN (00:22)
[2022-04-03] MEDS ORDERED: ACETAMINOPHEN 325 MG TABLET (FP) PO PRN ×2 (00:22)
[2022-04-03] MEDS ORDERED: ONDANSETRON *ODT* 4 MG TABLET SL PRN (00:22)
[2022-04-03] MEDS ORDERED: NICOTINE POLACRILEX 2 MG GUM BUC PRN (00:22)
[2022-04-03] MEDS ORDERED: IBUPROFEN 400 MG TABLET (FP) PO PRN (00:22)
[2022-04-03] MEDS ORDERED: chlordiazePOXIDE HCL 25 MG CAPSULE PO PRN (00:22)
[2022-04-03] MEDS ORDERED: IBUPROFEN 600 MG TABLET (FP) PO PRN (00:22)
[2022-04-03] MEDS ORDERED: DICYCLOMINE HCL 10 MG CAPSULE PO PRN (00:22)
[2022-04-03] MEDS ORDERED: MAG HYDROX/AL HYDROX/SIMETH 30 ML UNIT-DOSE CUP PO PRN (00:22)
[2022-04-03] MEDS ORDERED: POLYETHYLENE GLYCOL (HEALTHYLAX) 3350 17 GM PACKET PO PRN (00:22)
[2022-04-03] MEDS ORDERED: BISMUTH SUBSALICYLATE 524 MG/30 ML PO PRN (00:22)
[2022-04-03] MEDS ORDERED: NALOXONE HCL (KLOXXADO) 8 MG SPRAY NS PRN (00:22)
[2022-04-03] MEDS ORDERED: LOPERAMIDE HCL 2 MG CAPSULE PO PRN (00:22)
[2022-04-03] MEDS ORDERED: MAGNESIUM HYDROX 2400MG/30ML ORAL SUSPENSION 30 ML CUP PO PRN (00:22)
[2022-04-03] MEDS ORDERED: chlordiazePOXIDE HCL 25 MG CAPSULE PO ONE (06:12)
[2022-04-03] MEDS ORDERED: cloNIDine HCL 0.1 MG TABLET PO ONE (06:13)
[2022-04-03] MEDS: chlordiazePOXIDE HCL 25 MG CAPSULE PO SCH ×4 (06:34→22:28)
[2022-04-03] MEDS: PRENATAL VITAMINS W/ FOLIC ACID TABLET (FP) PO SCH (10:34)
[2022-04-03] MEDS: NICOTINE 14 MG/24 HOURS TOPICAL PATCH TD SCH (10:34)
[2022-04-03] MEDS: amLODIPine BESYLATE 5 MG TABLET (FP) PO SCH (10:35)
[2022-04-03] MEDS: predniSONE 20 MG TABLET (UD) PO SCH (11:03)
[2022-04-03] MEDS: GABAPENTIN 300 MG CAPSULE PO SCH ×2 (13:03→22:27)
[2022-04-03] MEDS: cloNIDine HCL 0.1 MG TABLET PO PRN (13:03)
[2022-04-03] MEDS: DIVALPROEX SODIUM 250 MG TABLET E.C. PO SCH (22:27)
[2022-04-03] MEDS: MELATONIN 5 MG TABLETS PO SCH (22:27)
[2022-04-03] MEDS: THIAMINE HCL 100 MG TABLET (FP) PO SCH (22:27)
[2022-04-03] MEDS: risperiDONE 2 MG TABLET PO SCH (22:27)
[2022-04-03] MEDS: TOPIRAMATE 25 MG TABLET PO SCH (22:28)
[2022-04-04] MEDS: chlordiazePOXIDE HCL 25 MG CAPSULE PO SCH ×4 (05:50→23:22)
[2022-04-04] MEDS: GABAPENTIN 300 MG CAPSULE PO SCH ×3 (07:21→23:21)
[2022-04-04] MEDS: predniSONE 20 MG TABLET (UD) PO SCH (10:29)
[2022-04-04] MEDS: PRENATAL VITAMINS W/ FOLIC ACID TABLET (FP) PO SCH (10:29)
[2022-04-04] MEDS: TOPIRAMATE 25 MG TABLET PO SCH ×2 (10:29→23:21)
[2022-04-04] MEDS: amLODIPine BESYLATE 5 MG TABLET (FP) PO SCH (10:29)
[2022-04-04] MEDS: NICOTINE 14 MG/24 HOURS TOPICAL PATCH TD SCH (10:30)
[2022-04-04 12:41] LABS: ALBUMIN 2.7 g/dl (3.4-5.0); BLOOD UREA NITROGEN 10.2 mg/dL (7-18)
[2022-04-04 12:43] LABS: CALCIUM 8.8 mg/dL (8.5-10.1)
[2022-04-04 12:44] LABS: CREATININE 0.7 mg/dL (0.55-1.3)
[2022-04-04 12:45] LABS: BILIRUBIN,TOTAL 0.1 mg/dL (0.2-1); TOT PROT 6.5 g/dl (6.4-8.2)
[2022-04-04 13:03] LABS: HEMATOCRIT 38.3 % (32.4-45.2); HEMOGLOBIN 11.7 GM/dL (10.7-15.3); MCH 22.9 pg (25.7-33.7); MCHC 30.5 g/dl (32.0-36.0); MEAN PLT VOLUME 9.3 fl (7.5-11.1); PLATELET COUNT 239 10^3/uL (134-434); RDW 16.2 % (11.6-15.6); WHITE BLOOD COUNT 9.5 K/mm3 (4.0-10.0)
[2022-04-04] MEDS: cloNIDine HCL 0.1 MG TABLET PO PRN (13:10)
[2022-04-04] MEDS: DIVALPROEX SODIUM 250 MG TABLET E.C. PO SCH (23:21)
[2022-04-04] MEDS: risperiDONE 2 MG TABLET PO SCH (23:21)
[2022-04-04] MEDS: THIAMINE HCL 100 MG TABLET (FP) PO SCH (23:21)
[2022-04-04] MEDS: ALBUTEROL SO4 HFA INHALER IH PRN (23:26)
[2022-04-04] MEDS: MELATONIN 5 MG TABLETS PO SCH (23:37)
[2022-04-05] MEDS ORDERED: chlordiazePOXIDE HCL 10 MG CAPSULE PO PRN
[2022-04-05] MEDS: chlordiazePOXIDE HCL 10 MG CAPSULE PO SCH ×4 (05:50→22:51)
[2022-04-05] MEDS: GABAPENTIN 300 MG CAPSULE PO SCH ×3 (05:50→22:51)
[2022-04-05] MEDS: amLODIPine BESYLATE 5 MG TABLET (FP) PO SCH (10:29)
[2022-04-05] MEDS: predniSONE 20 MG TABLET (UD) PO SCH (10:29)
[2022-04-05] MEDS: PRENATAL VITAMINS W/ FOLIC ACID TABLET (FP) PO SCH (10:29)
[2022-04-05] MEDS: TOPIRAMATE 25 MG TABLET PO SCH ×2 (10:29→22:51)
[2022-04-05] MEDS: NICOTINE 14 MG/24 HOURS TOPICAL PATCH TD SCH (10:30)
[2022-04-05] MEDS: THIAMINE HCL 100 MG TABLET (FP) PO SCH (22:51)
[2022-04-05] MEDS: risperiDONE 2 MG TABLET PO SCH (22:51)
[2022-04-05] MEDS: MELATONIN 5 MG TABLETS PO SCH (22:51)
[2022-04-05] MEDS: DIVALPROEX SODIUM 250 MG TABLET E.C. PO SCH (22:51)
[2022-04-06] MEDS: GABAPENTIN 300 MG CAPSULE PO SCH ×3 (06:08→22:19)
[2022-04-06] MEDS: chlordiazePOXIDE HCL 10 MG CAPSULE PO SCH ×2 (06:08→17:37)
[2022-04-06 07:49] LABS: EPI CELLS >36 /uL (0-25.1); HYALINE CASTS 2 /uL (0-3.1); URINE APPEARANCE CLOUDY; URINE BACTERIA 177 /uL (0-1359); URINE BILIRUBIN NEGATIVE (NEGATIVE); URINE COLOR YELLOW; URINE GLUCOSE (UA) 1+ (NEGATIVE); URINE KETONE NEGATIVE (NEGATIVE); URINE LEUK ESTERASE 2+ (NEGATIVE); URINE NITRITE NEGATIVE (NEGATIVE); URINE PROTEIN TRACE (NEGATIVE); URINE RBC 5 /uL (0-23.9); URINE UROBILINOGEN 0.2 mg/dL (0.2-1.0); URINE WBC 58 /uL (0-25.8)
[2022-04-06] MEDS: amLODIPine BESYLATE 5 MG TABLET (FP) PO SCH (12:02)
[2022-04-06] MEDS: PRENATAL VITAMINS W/ FOLIC ACID TABLET (FP) PO SCH (12:02)
[2022-04-06] MEDS: TOPIRAMATE 25 MG TABLET PO SCH ×2 (12:02→22:20)
[2022-04-06] MEDS: NICOTINE 14 MG/24 HOURS TOPICAL PATCH TD SCH (12:03)
[2022-04-06] MEDS: predniSONE 20 MG TABLET (UD) PO SCH (12:03)
[2022-04-06] MEDS ORDERED: NICOTINE 10 MG CARTRIDGE (INHALER) IH SCH (18:15)
[2022-04-06] MEDS ORDERED: NICOTINE 10 MG CARTRIDGE (INHALER) IH PRN (18:30)
[2022-04-06] MEDS ORDERED: SULFAMETHOXAZOLE/TRIMETHOPRIM 800MG/160MG D.S. TABLET PO SCH (22:00)
[2022-04-06] MEDS: DIVALPROEX SODIUM 250 MG TABLET E.C. PO SCH (22:19)
[2022-04-06] MEDS: risperiDONE 2 MG TABLET PO SCH (22:19)
[2022-04-06] MEDS: MELATONIN 5 MG TABLETS PO SCH (22:19)
[2022-04-06] MEDS: THIAMINE HCL 100 MG TABLET (FP) PO SCH (22:19)
[2022-04-06] MEDS: SULFAMETHOXAZOLE/TRIMETHOPRIM 800MG/160MG D.S. TABLET PO SCH (22:20)
[2022-04-06] MEDS: ALBUTEROL SO4 HFA INHALER IH PRN (23:41)
[2022-04-07] MEDS: cloNIDine HCL 0.1 MG TABLET PO PRN (00:36)
[2022-04-07] MEDS ORDERED: chlordiazePOXIDE HCL 10 MG CAPSULE PO ONE (05:00)
[2022-04-07] MEDS: GABAPENTIN 300 MG CAPSULE PO SCH (06:27)
[2022-04-07] MEDS: predniSONE 20 MG TABLET (UD) PO SCH (10:17)
[2022-04-07] MEDS: TOPIRAMATE 25 MG TABLET PO SCH (10:17)
[2022-04-07 10:27] VITALS: BP 139/90; PULSE 80; RESP 18; TEMP 97.3
[2022-04-07] MEDS: PRENATAL VITAMINS W/ FOLIC ACID TABLET (FP) PO SCH (10:27)
[2022-04-07] MEDS: SULFAMETHOXAZOLE/TRIMETHOPRIM 800MG/160MG D.S. TABLET PO SCH (10:28)
[2022-04-07] MEDS: amLODIPine BESYLATE 5 MG TABLET (FP) PO SCH (10:28)
[2022-04-07] MEDS: NICOTINE 14 MG/24 HOURS TOPICAL PATCH TD SCH (10:31)
== END 2022-04-07 11:45 | disposition home or self-care (01) | DRG 774 ==
LOC: YASAS 20:21 → Y6N 04-03 01:46
PROVIDERS: ADMIT Allergy & Immunology; ATTEND Surgery
PROC: HZ2ZZZZ Detoxification Services for Substance Abuse Treatment (ICD-10-PCS; principal; 2022-04-03)
DX: F10.230 Alcohol dependence with withdrawal, uncomplicated (principal); F14.20 Cocaine dependence, uncomplicated; F12.20 Cannabis dependence, uncomplicated; F17.210 Nicotine dependence, cigarettes, uncomplicated; F43.10 Post-traumatic stress disorder, unspecified; F31.9 Bipolar disorder, unspecified; F25.9 Schizoaffective disorder, unspecified; F19.282 Other psychoactive substance dependence with psychoactive substance-induced sleep disorder; I10 Essential (primary) hypertension; G89.29 Other chronic pain; J06.9 Acute upper respiratory infection, unspecified; E66.9 Obesity, unspecified; Z68.34 Body mass index [BMI] 34.0-34.9, adult; Z56.0 Unemployment, unspecified; Z59.01 Sheltered homelessness
CPT/HCPCS: 36415; 71046-TC-FY; 80053; 81003; 81025; 85027; 86780; C9803-CS; U0003; U0005

== ENCOUNTER 2022-09-28 09:15 | Inpatient (IN) | payer OTHER ==
[2022-09-28 10:24] VITALS: BMI 40.8
[2022-09-28] MEDS ORDERED: NALOXONE HCL (KLOXXADO) 8 MG SPRAY NS PRN (11:14)
[2022-09-28] MEDS ORDERED: NICOTINE 10 MG CARTRIDGE (INHALER) IH PRN (11:14)
[2022-09-28] MEDS ORDERED: BENZONATATE 200 MG CAPSULE PO PRN (11:14)
[2022-09-28] MEDS ORDERED: DICYCLOMINE HCL 10 MG CAPSULE PO PRN (11:14)
[2022-09-28] MEDS ORDERED: BENZOCAINE/MENTHOL (CHLORASEPTIC ) LOZENGE MM PRN (11:14)
[2022-09-28] MEDS ORDERED: IBUPROFEN 600 MG TABLET (FP) PO PRN (11:14)
[2022-09-28] MEDS ORDERED: BISMUTH SUBSALICYLATE 524 MG/30 ML PO PRN (11:14)
[2022-09-28] MEDS ORDERED: MAGNESIUM HYDROX 2400MG/30ML ORAL SUSPENSION 30 ML CUP PO PRN (11:14)
[2022-09-28] MEDS ORDERED: hydrOXYzine PAMOATE 25 MG CAPSULE (FP) PO PRN (11:14)
[2022-09-28] MEDS ORDERED: NALOXONE HCL 0.4 MG/ML VIAL IM PRN (11:14)
[2022-09-28] MEDS ORDERED: ACETAMINOPHEN 325 MG TABLET (FP) PO PRN (11:14)
[2022-09-28] MEDS ORDERED: LOPERAMIDE HCL 2 MG CAPSULE PO PRN (11:14)
[2022-09-28] MEDS ORDERED: ONDANSETRON *ODT* 4 MG TABLET SL PRN (11:14)
[2022-09-28] MEDS ORDERED: POLYETHYLENE GLYCOL (HEALTHYLAX) 3350 17 GM PACKET PO PRN (11:14)
[2022-09-28] MEDS ORDERED: guaiFENesin 600 MG TABLET.ER (FP) PO PRN (11:14)
[2022-09-28] MEDS ORDERED: NICOTINE POLACRILEX 2 MG GUM BUC PRN (11:14)
[2022-09-28] MEDS ORDERED: IBUPROFEN 400 MG TABLET (FP) PO PRN (11:14)
[2022-09-28] MEDS ORDERED: MAG HYDROX/AL HYDROX/SIMETH 30 ML UNIT-DOSE CUP PO PRN (11:14)
[2022-09-28] MEDS ORDERED: ALBUTEROL SO4 HFA INHALER IH PRN (13:00)
[2022-09-28] MEDS: amLODIPine BESYLATE 5 MG TABLET (FP) PO SCH (13:20)
[2022-09-28] MEDS ORDERED: METOPROLOL TARTRATE 25 MG TABLET (FP) PO ONE (18:02)
[2022-09-28] MEDS ORDERED: chlordiazePOXIDE HCL 25 MG CAPSULE PO ONE (18:02)
[2022-09-28] MEDS ORDERED: chlordiazePOXIDE HCL 25 MG CAPSULE PO PRN (18:02)
[2022-09-28] MEDS: MELATONIN 5 MG TABLETS PO SCH (22:42)
[2022-09-28] MEDS: THIAMINE HCL 100 MG TABLET (FP) PO SCH (22:42)
[2022-09-28] MEDS: METHOCARBAMOL 500 MG TABLET PO PRN (22:42)
[2022-09-28] MEDS: chlordiazePOXIDE HCL 25 MG CAPSULE PO SCH (22:42)
[2022-09-29] MEDS: chlordiazePOXIDE HCL 25 MG CAPSULE PO SCH ×4 (05:50→22:30)
[2022-09-29 10:19] LABS: HEMOGLOBIN 12.4 GM/dL (10.7-15.3); MCH 22.8 pg (25.7-33.7); MEAN CELL VOLUME 73.5 fl (80-96); MEAN PLT VOLUME 9.4 fl (7.5-11.1); PLATELET COUNT 183 10^3/uL (134-434); RBC 5.45 M/mm3 (3.60-5.2); RDW 17.1 % (11.6-15.6); WHITE BLOOD COUNT 6.5 K/mm3 (4.0-10.0)
[2022-09-29 10:34] LABS: ALBUMIN 2.9 g/dl (3.4-5.0); BLOOD UREA NITROGEN 7.8 mg/dL (7-18)
[2022-09-29 10:37] LABS: CREATININE 0.7 mg/dL (0.55-1.3)
[2022-09-29 10:38] LABS: BILIRUBIN,TOTAL 0.5 mg/dL (0.2-1); TOT PROT 6.3 g/dl (6.4-8.2)
[2022-09-29] MEDS: PRENATAL VITAMINS W/ FOLIC ACID TABLET (FP) PO SCH (10:51)
[2022-09-29] MEDS: amLODIPine BESYLATE 5 MG TABLET (FP) PO SCH (10:51)
[2022-09-29 11:19] LABS: HIV INTERPRETATION NEGATIVE (NEGATIVE)
[2022-09-29] MEDS ORDERED: risperiDONE 1 MG TABLET PO SCH (13:30)
[2022-09-29] MEDS ORDERED: PNEUMOC 20-VAL CONJ-DIP CRM/PF 0.5 ML SYRINGE IM ONE (14:00)
[2022-09-29] MEDS: METHOCARBAMOL 500 MG TABLET PO PRN (15:03)
[2022-09-29] MEDS ORDERED: METOPROLOL TARTRATE 25 MG TABLET (FP) PO ONE (15:12)
[2022-09-29] MEDS ORDERED: risperiDONE 2 MG TABLET PO SCH (22:00)
[2022-09-29] MEDS: MELATONIN 5 MG TABLETS PO SCH (22:30)
[2022-09-29] MEDS: THIAMINE HCL 100 MG TABLET (FP) PO SCH (22:30)
[2022-09-30] MEDS: chlordiazePOXIDE HCL 25 MG CAPSULE PO SCH ×3 (06:00→17:53)
[2022-09-30] MEDS ORDERED: amLODIPine BESYLATE 10 MG TABLET (FP) PO SCH (10:00)
[2022-09-30] MEDS: PRENATAL VITAMINS W/ FOLIC ACID TABLET (FP) PO SCH (10:29)
[2022-09-30 18:00] VITALS: RESP 18
[2022-09-30 18:24] VITALS: BP 141/76; PULSE 101; TEMP 97.1
[2022-10-01] MEDS ORDERED: chlordiazePOXIDE HCL 10 MG CAPSULE PO PRN
[2022-10-01] MEDS ORDERED: chlordiazePOXIDE HCL 10 MG CAPSULE PO SCH (05:00)
[2022-10-02] MEDS ORDERED: chlordiazePOXIDE HCL 10 MG CAPSULE PO SCH (05:00)
[2022-10-03] MEDS ORDERED: chlordiazePOXIDE HCL 10 MG CAPSULE PO ONE (05:00)
== END 2022-09-30 18:45 | disposition left against medical advice (07) | DRG 770 ==
LOC: YASAS 09:15 → Y6N 12:07
PROVIDERS: ADMIT Allergy & Immunology; ATTEND Surgery
PROC: HZ2ZZZZ Detoxification Services for Substance Abuse Treatment (ICD-10-PCS; principal; 2022-09-28)
DX: F10.230 Alcohol dependence with withdrawal, uncomplicated (principal); F14.20 Cocaine dependence, uncomplicated; F17.210 Nicotine dependence, cigarettes, uncomplicated; F25.9 Schizoaffective disorder, unspecified; F31.9 Bipolar disorder, unspecified; F41.9 Anxiety disorder, unspecified; I10 Essential (primary) hypertension; Z99.89 Dependence on other enabling machines and devices
CPT/HCPCS: 36415; 80053; 81025; 85027; 86780; 87389

== ENCOUNTER 2022-11-08 11:02 | Inpatient (IN) | payer OTHER ==
[2022-11-08 12:29] VITALS: BMI 37.3
[2022-11-08] MEDS ORDERED: BENZONATATE 200 MG CAPSULE PO PRN (13:56)
[2022-11-08] MEDS ORDERED: NALOXONE HCL 0.4 MG/ML VIAL IM PRN (13:56)
[2022-11-08] MEDS ORDERED: BISMUTH SUBSALICYLATE 524 MG/30 ML PO PRN (13:56)
[2022-11-08] MEDS ORDERED: POLYETHYLENE GLYCOL (HEALTHYLAX) 3350 17 GM PACKET PO PRN (13:56)
[2022-11-08] MEDS ORDERED: NALOXONE HCL (KLOXXADO) 8 MG SPRAY NS PRN (13:56)
[2022-11-08] MEDS ORDERED: ONDANSETRON *ODT* 4 MG TABLET SL PRN (13:56)
[2022-11-08] MEDS ORDERED: guaiFENesin 600 MG TABLET.ER (FP) PO PRN (13:56)
[2022-11-08] MEDS ORDERED: IBUPROFEN 600 MG TABLET (FP) PO PRN (13:56)
[2022-11-08] MEDS ORDERED: LOPERAMIDE HCL 2 MG CAPSULE PO PRN (13:56)
[2022-11-08] MEDS ORDERED: MAG HYDROX/AL HYDROX/SIMETH 30 ML UNIT-DOSE CUP PO PRN (13:56)
[2022-11-08] MEDS ORDERED: ACETAMINOPHEN 325 MG TABLET (FP) PO PRN (13:56)
[2022-11-08] MEDS ORDERED: NICOTINE POLACRILEX 4 MG GUM BUC PRN (13:56)
[2022-11-08] MEDS ORDERED: DICYCLOMINE HCL 10 MG CAPSULE PO PRN (13:56)
[2022-11-08] MEDS ORDERED: MAGNESIUM HYDROX 2400MG/30ML ORAL SUSPENSION 30 ML CUP PO PRN (13:56)
[2022-11-08] MEDS ORDERED: IBUPROFEN 400 MG TABLET (FP) PO PRN (13:56)
[2022-11-08] MEDS ORDERED: BENZOCAINE/MENTHOL (CHLORASEPTIC ) LOZENGE MM PRN (13:56)
[2022-11-08] MEDS ORDERED: ALBUTEROL SO4 HFA INHALER IH PRN (13:58)
[2022-11-08] MEDS ORDERED: amLODIPine BESYLATE 10 MG TABLET (FP) PO SCH (14:00)
[2022-11-08] MEDS ORDERED: amLODIPine BESYLATE 5 MG TABLET (FP) ONE (15:36)
[2022-11-08] MEDS ORDERED: NICOTINE 21 MG/24 HOURS TOPICAL PATCH ONE (15:36)
[2022-11-08] MEDS: NICOTINE 21 MG/24 HOURS TOPICAL PATCH TD SCH (15:38)
[2022-11-08] MEDS: amLODIPine BESYLATE 5 MG TABLET (FP) PO SCH (15:38)
[2022-11-08] MEDS ORDERED: ACETAMINOPHEN 325 MG TABLET (FP) ONE (15:54)
[2022-11-08] MEDS: chlordiazePOXIDE HCL 25 MG CAPSULE PO SCH ×2 (17:28→22:26)
[2022-11-08] MEDS: MELATONIN 5 MG TABLETS PO SCH (22:26)
[2022-11-08] MEDS: METHOCARBAMOL 500 MG TABLET PO PRN (22:26)
[2022-11-08] MEDS: THIAMINE HCL 100 MG TABLET (FP) PO SCH (22:26)
[2022-11-09] MEDS: chlordiazePOXIDE HCL 25 MG CAPSULE PO SCH ×4 (06:23→22:30)
[2022-11-09 09:14] LABS: POTASSIUM 3.5 mmol/L (3.5-5.1)
[2022-11-09 09:16] LABS: HEMATOCRIT 40.6 % (32.4-45.2); HEMOGLOBIN 12.4 GM/dL (10.7-15.3); MCH 22.6 pg (25.7-33.7); MCHC 30.6 g/dl (32.0-36.0); PLATELET COUNT 183 10^3/uL (134-434); RBC 5.49 M/mm3 (3.60-5.2); RDW 15.5 % (11.6-15.6); WHITE BLOOD COUNT 4.8 K/mm3 (4.0-10.0)
[2022-11-09 09:19] LABS: ALBUMIN 2.8 g/dl (3.4-5.0); BLOOD UREA NITROGEN 9.3 mg/dL (7-18)
[2022-11-09 09:22] LABS: CREATININE 0.7 mg/dL (0.55-1.3)
[2022-11-09 09:23] LABS: BILIRUBIN,TOTAL 0.1 mg/dL (0.2-1); TOT PROT 6.4 g/dl (6.4-8.2)
[2022-11-09] MEDS: NICOTINE 21 MG/24 HOURS TOPICAL PATCH TD SCH (10:43)
[2022-11-09] MEDS: PRENATAL VITAMINS W/ FOLIC ACID TABLET (FP) PO SCH (10:43)
[2022-11-09] MEDS: amLODIPine BESYLATE 5 MG TABLET (FP) PO SCH (10:44)
[2022-11-09] MEDS: METHOCARBAMOL 500 MG TABLET PO PRN ×2 (10:46→22:30)
[2022-11-09] MEDS ORDERED: LISINOPRIL 20 MG TABLET PO ONE (14:01)
[2022-11-09] MEDS: risperiDONE 2 MG TABLET PO SCH (22:30)
[2022-11-09] MEDS: THIAMINE HCL 100 MG TABLET (FP) PO SCH (22:30)
[2022-11-09] MEDS: MELATONIN 5 MG TABLETS PO SCH (22:30)
[2022-11-10] MEDS: chlordiazePOXIDE HCL 25 MG CAPSULE PO SCH ×4 (06:00→22:48)
[2022-11-10] MEDS: chlordiazePOXIDE HCL 25 MG CAPSULE PO PRN ×2 (06:37→20:25)
[2022-11-10] MEDS: PRENATAL VITAMINS W/ FOLIC ACID TABLET (FP) PO SCH (10:55)
[2022-11-10] MEDS: NICOTINE 21 MG/24 HOURS TOPICAL PATCH TD SCH (10:55)
[2022-11-10] MEDS: amLODIPine BESYLATE 5 MG TABLET (FP) PO SCH (10:56)
[2022-11-10] MEDS: METHOCARBAMOL 500 MG TABLET PO PRN (17:15)
[2022-11-10] MEDS: MELATONIN 5 MG TABLETS PO SCH (22:22)
[2022-11-10] MEDS: THIAMINE HCL 100 MG TABLET (FP) PO SCH (22:22)
[2022-11-10] MEDS: risperiDONE 2 MG TABLET PO SCH (22:22)
[2022-11-11] MEDS ORDERED: chlordiazePOXIDE HCL 10 MG CAPSULE PO PRN
[2022-11-11] MEDS: chlordiazePOXIDE HCL 10 MG CAPSULE PO SCH ×2 (05:50→11:07)
[2022-11-11 06:17] VITALS: RESP 18
[2022-11-11] MEDS: amLODIPine BESYLATE 5 MG TABLET (FP) PO SCH (09:15)
[2022-11-11] MEDS: NICOTINE 21 MG/24 HOURS TOPICAL PATCH TD SCH (11:08)
[2022-11-11] MEDS: PRENATAL VITAMINS W/ FOLIC ACID TABLET (FP) PO SCH (11:08)
[2022-11-11 13:42] VITALS: BP 152/96; PULSE 107; TEMP 97.6
[2022-11-11] MEDS ORDERED: METOPROLOL TARTRATE 50 MG TABLET (FP) PO ONE (14:09)
[2022-11-11] MEDS ORDERED: LORazepam 1 MG TABLET PO PRN (14:27)
[2022-11-11] MEDS ORDERED: LORazepam 1 MG TABLET PO SCH (17:00)
[2022-11-12] MEDS ORDERED: chlordiazePOXIDE HCL 10 MG CAPSULE PO SCH (05:00)
[2022-11-12] MEDS ORDERED: LORazepam 0.5 MG TABLET PO SCH (05:00)
[2022-11-13] MEDS ORDERED: LORazepam 0.5 MG TABLET PO ONE (05:00)
[2022-11-13] MEDS ORDERED: chlordiazePOXIDE HCL 10 MG CAPSULE PO ONE (05:00)
== END 2022-11-11 14:38 | disposition short-term general hospital (02) | DRG 774 ==
LOC: YASAS 11:02 → Y6N 16:09
PROVIDERS: ADMIT Allergy & Immunology; ATTEND Surgery
PROC: HZ2ZZZZ Detoxification Services for Substance Abuse Treatment (ICD-10-PCS; principal; 2022-11-08)
DX: F10.230 Alcohol dependence with withdrawal, uncomplicated (principal); F14.20 Cocaine dependence, uncomplicated; F12.20 Cannabis dependence, uncomplicated; F17.210 Nicotine dependence, cigarettes, uncomplicated; F19.282 Other psychoactive substance dependence with psychoactive substance-induced sleep disorder; F25.9 Schizoaffective disorder, unspecified; I10 Essential (primary) hypertension; J45.909 Unspecified asthma, uncomplicated; M54.42 Lumbago with sciatica, left side; G89.29 Other chronic pain; R45.850 Homicidal ideations; R45.81 Low self-esteem
CPT/HCPCS: 36415; 80053; 80164; 81025; 83036; 85027; 86780; 87635

== ENCOUNTER 2023-01-14 20:25 | Inpatient (IN) | payer OTHER ==
[2023-01-14 22:26] VITALS: BMI 35.6
[2023-01-14] MEDS ORDERED: NICOTINE POLACRILEX 2 MG GUM BUC PRN (23:37)
[2023-01-14] MEDS ORDERED: BENZOCAINE/MENTHOL (CHLORASEPTIC ) LOZENGE MM PRN (23:37)
[2023-01-14] MEDS ORDERED: DICYCLOMINE HCL 10 MG CAPSULE PO PRN (23:37)
[2023-01-14] MEDS ORDERED: ACETAMINOPHEN 325 MG TABLET (FP) PO PRN (23:37)
[2023-01-14] MEDS ORDERED: BENZONATATE 200 MG CAPSULE PO PRN (23:37)
[2023-01-14] MEDS ORDERED: BISMUTH SUBSALICYLATE 524 MG/30 ML PO PRN (23:37)
[2023-01-14] MEDS ORDERED: IBUPROFEN 600 MG TABLET (FP) PO PRN (23:37)
[2023-01-14] MEDS ORDERED: IBUPROFEN 400 MG TABLET (FP) PO PRN (23:37)
[2023-01-14] MEDS ORDERED: LOPERAMIDE HCL 2 MG CAPSULE PO PRN (23:37)
[2023-01-14] MEDS ORDERED: guaiFENesin 600 MG TABLET.ER (FP) PO PRN (23:37)
[2023-01-14] MEDS ORDERED: MAG HYDROX/AL HYDROX/SIMETH 30 ML UNIT-DOSE CUP PO PRN (23:37)
[2023-01-14] MEDS ORDERED: MAGNESIUM HYDROX 2400MG/30ML ORAL SUSPENSION 30 ML CUP PO PRN (23:37)
[2023-01-14] MEDS ORDERED: POLYETHYLENE GLYCOL (HEALTHYLAX) 3350 17 GM PACKET PO PRN (23:37)
[2023-01-14] MEDS ORDERED: ONDANSETRON *ODT* 4 MG TABLET SL PRN (23:37)
[2023-01-15] MEDS ORDERED: cloNIDine HCL 0.1 MG TABLET PO ONE ×2 (00:40→05:15)
[2023-01-15] MEDS ORDERED: cloNIDine HCL 0.1 MG TABLET ONE (00:45)
[2023-01-15] MEDS ORDERED: hydrOXYzine PAMOATE 25 MG CAPSULE (FP) PO ONE (00:45)
[2023-01-15] MEDS: hydrOXYzine PAMOATE 25 MG CAPSULE (FP) PO PRN (00:46)
[2023-01-15] MEDS ORDERED: chlordiazePOXIDE HCL 25 MG CAPSULE PO PRN (10:11)
[2023-01-15] MEDS: amLODIPine BESYLATE 5 MG TABLET (FP) PO SCH (10:39)
[2023-01-15] MEDS: PRENATAL VITAMINS W/ FOLIC ACID TABLET (FP) PO SCH (10:39)
[2023-01-15] MEDS: chlordiazePOXIDE HCL 25 MG CAPSULE PO SCH ×3 (10:39→22:19)
[2023-01-15] MEDS: ALBUTEROL SO4 HFA INHALER IH PRN ×2 (10:43→22:18)
[2023-01-15 12:57] LABS: POTASSIUM 3.9 mmol/L (3.5-5.1)
[2023-01-15 12:58] LABS: CALCIUM 8.9 mg/dL (8.5-10.1)
[2023-01-15 12:59] LABS: BLOOD UREA NITROGEN 19.8 mg/dL (7-18)
[2023-01-15 13:01] LABS: HEMATOCRIT 38.7 % (32.4-45.2); HEMOGLOBIN 12.5 GM/dL (10.7-15.3); MCH 23.6 pg (25.7-33.7); MCHC 32.3 g/dl (32.0-36.0); MEAN CELL VOLUME 73.2 fl (80-96); MEAN PLT VOLUME 9.2 fl (7.5-11.1); PLATELET COUNT 204 10^3/uL (134-434); RBC 5.29 M/mm3 (3.60-5.2); RDW 18.6 % (11.6-15.6); WHITE BLOOD COUNT 6.5 K/mm3 (4.0-10.0)
[2023-01-15 13:02] LABS: CREATININE 0.9 mg/dL (0.55-1.3)
[2023-01-15 13:04] LABS: BILIRUBIN,TOTAL 0.3 mg/dL (0.2-1); TOT PROT 6.7 g/dl (6.4-8.2)
[2023-01-15] MEDS: GABAPENTIN 300 MG CAPSULE PO SCH ×3 (13:34→22:18)
[2023-01-15] MEDS: THIAMINE HCL 100 MG TABLET (FP) PO SCH (22:18)
[2023-01-15] MEDS: MELATONIN 5 MG TABLETS PO SCH (22:18)
[2023-01-15] MEDS: METHOCARBAMOL 500 MG TABLET PO PRN (22:21)
[2023-01-16] MEDS: chlordiazePOXIDE HCL 25 MG CAPSULE PO SCH ×4 (05:56→22:44)
[2023-01-16] MEDS: GABAPENTIN 300 MG CAPSULE PO SCH ×4 (10:21→22:43)
[2023-01-16] MEDS: amLODIPine BESYLATE 5 MG TABLET (FP) PO SCH (10:21)
[2023-01-16] MEDS: PRENATAL VITAMINS W/ FOLIC ACID TABLET (FP) PO SCH (10:21)
[2023-01-16] MEDS: METHOCARBAMOL 500 MG TABLET PO PRN ×2 (13:21→19:38)
[2023-01-16] MEDS: hydrOXYzine PAMOATE 25 MG CAPSULE (FP) PO PRN (13:21)
[2023-01-16] MEDS ORDERED: amLODIPine BESYLATE 5 MG TABLET (FP) PO ONE (14:38)
[2023-01-16] MEDS: THIAMINE HCL 100 MG TABLET (FP) PO SCH (22:43)
[2023-01-16] MEDS: MELATONIN 5 MG TABLETS PO SCH (22:43)
[2023-01-16] MEDS: risperiDONE 2 MG TABLET PO SCH (22:44)
[2023-01-16] MEDS: DIVALPROEX SODIUM 500 MG TABLET E.C. PO SCH (22:44)
[2023-01-17] MEDS: chlordiazePOXIDE HCL 25 MG CAPSULE PO SCH ×4 (05:58→22:31)
[2023-01-17] MEDS: GABAPENTIN 300 MG CAPSULE PO SCH ×4 (10:35→22:31)
[2023-01-17] MEDS: PRENATAL VITAMINS W/ FOLIC ACID TABLET (FP) PO SCH (10:35)
[2023-01-17] MEDS: amLODIPine BESYLATE 10 MG TABLET (FP) PO SCH (10:36)
[2023-01-17] MEDS: MELATONIN 5 MG TABLETS PO SCH (22:30)
[2023-01-17] MEDS: DIVALPROEX SODIUM 500 MG TABLET E.C. PO SCH (22:31)
[2023-01-17] MEDS: risperiDONE 2 MG TABLET PO SCH (22:31)
[2023-01-17] MEDS: THIAMINE HCL 100 MG TABLET (FP) PO SCH (22:31)
[2023-01-17] MEDS: ALBUTEROL SO4 HFA INHALER IH PRN (22:47)
[2023-01-18] MEDS ORDERED: chlordiazePOXIDE HCL 10 MG CAPSULE PO PRN
[2023-01-18] MEDS: chlordiazePOXIDE HCL 10 MG CAPSULE PO SCH ×4 (05:47→22:05)
[2023-01-18] MEDS: GABAPENTIN 300 MG CAPSULE PO SCH ×4 (10:03→22:05)
[2023-01-18] MEDS: PRENATAL VITAMINS W/ FOLIC ACID TABLET (FP) PO SCH (10:03)
[2023-01-18] MEDS: amLODIPine BESYLATE 10 MG TABLET (FP) PO SCH (10:03)
[2023-01-18] MEDS: LOSARTAN POTASSIUM 25 MG TABLET PO SCH (13:18)
[2023-01-18] MEDS ORDERED: NICOTINE 21 MG/24 HOURS TOPICAL PATCH TD PRN (13:23)
[2023-01-18] MEDS ORDERED: guaiFENesin 600 MG TABLET.ER (FP) PO ONE (13:30)
[2023-01-18] MEDS: MELATONIN 5 MG TABLETS PO SCH (22:05)
[2023-01-18] MEDS: THIAMINE HCL 100 MG TABLET (FP) PO SCH (22:05)
[2023-01-18] MEDS: DIVALPROEX SODIUM 500 MG TABLET E.C. PO SCH (22:05)
[2023-01-18] MEDS: guaiFENesin 600 MG TABLET.ER (FP) PO SCH (22:05)
[2023-01-18] MEDS: risperiDONE 2 MG TABLET PO SCH (22:05)
[2023-01-19] MEDS: chlordiazePOXIDE HCL 10 MG CAPSULE PO SCH ×2 (05:47→16:58)
[2023-01-19] MEDS: amLODIPine BESYLATE 10 MG TABLET (FP) PO SCH (09:29)
[2023-01-19] MEDS: GABAPENTIN 300 MG CAPSULE PO SCH ×4 (09:29→22:06)
[2023-01-19] MEDS: LOSARTAN POTASSIUM 25 MG TABLET PO SCH (09:29)
[2023-01-19] MEDS: guaiFENesin 600 MG TABLET.ER (FP) PO SCH ×2 (09:29→22:06)
[2023-01-19] MEDS: PRENATAL VITAMINS W/ FOLIC ACID TABLET (FP) PO SCH (09:29)
[2023-01-19] MEDS ORDERED: cloNIDine HCL 0.1 MG TABLET PO PRN (13:22)
[2023-01-19 20:51] VITALS: RESP 18
[2023-01-19] MEDS: THIAMINE HCL 100 MG TABLET (FP) PO SCH (22:05)
[2023-01-19] MEDS: DIVALPROEX SODIUM 500 MG TABLET E.C. PO SCH (22:05)
[2023-01-19] MEDS: risperiDONE 2 MG TABLET PO SCH (22:06)
[2023-01-19] MEDS: MELATONIN 5 MG TABLETS PO SCH (22:06)
[2023-01-19] MEDS: hydrOXYzine PAMOATE 25 MG CAPSULE (FP) PO PRN (22:07)
[2023-01-20] MEDS ORDERED: chlordiazePOXIDE HCL 10 MG CAPSULE PO ONE (05:00)
[2023-01-20 09:24] VITALS: BP 138/82; PULSE 82; TEMP 97.5
[2023-01-20] MEDS ORDERED: LOSARTAN POTASSIUM 50 MG TABLET PO SCH (10:00)
[2023-01-20] MEDS: PRENATAL VITAMINS W/ FOLIC ACID TABLET (FP) PO SCH (10:13)
[2023-01-20] MEDS: guaiFENesin 600 MG TABLET.ER (FP) PO SCH (10:14)
[2023-01-20] MEDS: GABAPENTIN 300 MG CAPSULE PO SCH (10:14)
[2023-01-20] MEDS: amLODIPine BESYLATE 10 MG TABLET (FP) PO SCH (10:14)
== END 2023-01-20 10:40 | disposition home or self-care (01) | DRG 774 ==
LOC: YASAS 20:25 → Y3N 01-15 01:17 → Y6N 01-17 17:55
PROVIDERS: ADMIT Allergy & Immunology; ATTEND Allergy & Immunology
PROC: HZ2ZZZZ Detoxification Services for Substance Abuse Treatment (ICD-10-PCS; principal; 2023-01-15)
DX: F10.230 Alcohol dependence with withdrawal, uncomplicated (principal); F14.20 Cocaine dependence, uncomplicated; F12.20 Cannabis dependence, uncomplicated; F17.213 Nicotine dependence, cigarettes, with withdrawal; F25.0 Schizoaffective disorder, bipolar type; I10 Essential (primary) hypertension; J45.20 Mild intermittent asthma, uncomplicated; M79.2 Neuralgia and neuritis, unspecified; Z86.59 Personal history of other mental and behavioral disorders; Z99.89 Dependence on other enabling machines and devices
CPT/HCPCS: 36415; 80053; 80164; 81025; 85027; 86780; 87635; 87811

== ENCOUNTER 2023-06-23 11:27 | Inpatient (IN) | payer OTHER ==
[2023-06-23 11:55] VITALS: BMI 35.0
[2023-06-23] MEDS ORDERED: BENZOCAINE/MENTHOL (CHLORASEPTIC ) LOZENGE MM PRN (13:48)
[2023-06-23] MEDS ORDERED: NALOXONE HCL 0.4 MG/ML VIAL IM PRN (13:48)
[2023-06-23] MEDS ORDERED: MAG HYDROX/AL HYDROX/SIMETH 30 ML UNIT-DOSE CUP PO PRN (13:48)
[2023-06-23] MEDS ORDERED: BENZONATATE 200 MG CAPSULE PO PRN (13:48)
[2023-06-23] MEDS ORDERED: ACETAMINOPHEN 325 MG TABLET (FP) PO PRN (13:48)
[2023-06-23] MEDS ORDERED: MAGNESIUM HYDROX 2400MG/30ML ORAL SUSPENSION 30 ML CUP PO PRN (13:48)
[2023-06-23] MEDS ORDERED: IBUPROFEN 600 MG TABLET (FP) PO PRN (13:48)
[2023-06-23] MEDS ORDERED: NALOXONE HCL (KLOXXADO) 8 MG SPRAY NS PRN (13:48)
[2023-06-23] MEDS ORDERED: POLYETHYLENE GLYCOL (HEALTHYLAX) 3350 17 GM PACKET PO PRN (13:48)
[2023-06-23] MEDS ORDERED: ONDANSETRON *ODT* 4 MG TABLET SL PRN (13:48)
[2023-06-23] MEDS ORDERED: guaiFENesin 600 MG TABLET.ER (FP) PO PRN (13:48)
[2023-06-23] MEDS ORDERED: BISMUTH SUBSALICYLATE 262 MG/15 ML BTL PO PRN (13:48)
[2023-06-23] MEDS ORDERED: IBUPROFEN 400 MG TABLET (FP) PO PRN (13:48)
[2023-06-23] MEDS ORDERED: LOPERAMIDE HCL 2 MG CAPSULE PO PRN (13:48)
[2023-06-23] MEDS ORDERED: DICYCLOMINE HCL 10 MG CAPSULE PO PRN (13:48)
[2023-06-23] MEDS ORDERED: NICOTINE POLACRILEX 2 MG GUM BUC PRN (13:48)
[2023-06-23] MEDS ORDERED: cloNIDine HCL 0.1 MG TABLET ONE (14:35)
[2023-06-23] MEDS: cloNIDine HCL 0.1 MG TABLET PO ONE (14:37)
[2023-06-23] MEDS: THIAMINE HCL 100 MG TABLET (FP) PO SCH (22:25)
[2023-06-23] MEDS: MELATONIN 5 MG TABLETS PO SCH (22:25)
[2023-06-23] MEDS: METHOCARBAMOL 500 MG TABLET PO PRN (22:26)
[2023-06-23] MEDS: hydrOXYzine PAMOATE 25 MG CAPSULE (FP) PO PRN (22:26)
[2023-06-24] MEDS ORDERED: chlordiazePOXIDE HCL 25 MG CAPSULE PO PRN (09:10)
[2023-06-24] MEDS: PRENATAL VITAMINS W/ FOLIC ACID TABLET (FP) PO SCH (09:14)
[2023-06-24] MEDS: LOSARTAN POTASSIUM 50 MG TABLET PO SCH (09:14)
[2023-06-24] MEDS: chlordiazePOXIDE HCL 25 MG CAPSULE PO SCH (10:38)
[2023-06-24] MEDS: NICOTINE 14 MG/24 HOURS TOPICAL PATCH TD SCH (10:41)
[2023-06-24] MEDS: PATIENT'S OWN MEDICATION (NON-FORMULARY) (Metronidazole [Metronidazole] 500 MG Tablet) PO SCH (11:05)
[2023-06-24 12:15] LABS: HEMATOCRIT 36.7 % (32.4-45.2); HEMOGLOBIN 11.8 GM/dL (10.7-15.3); MCH 24.4 pg (25.7-33.7); MCHC 32.2 g/dl (32.0-36.0); MEAN CELL VOLUME 75.9 fl (80-96); MEAN PLT VOLUME 10.7 fl (7.5-11.1); PLATELET COUNT 166 10^3/uL (134-434); RBC 4.83 M/mm3 (3.60-5.2); RDW 17.3 % (11.6-15.6); WHITE BLOOD COUNT 7.2 K/mm3 (4.0-10.0)
[2023-06-24 13:16] LABS: CHLORIDE 107 mmol/L (98-107); POTASSIUM 3.9 mmol/L (3.5-5.1); SODIUM 141 mmol/L (136-145)
[2023-06-24 13:19] LABS: CALCIUM 8.3 mg/dL (8.5-10.1)
[2023-06-24 13:20] LABS: ALBUMIN 2.7 g/dl (3.4-5.0); ANION GAP 1 mmol/L (4-13); BLOOD UREA NITROGEN 11.6 mg/dL (7-18); CO2 33 mmol/L (21-32); GLUCOSE,RANDOM 106 mg/dL (74-106)
[2023-06-24 13:23] LABS: CREATININE 0.7 mg/dL (0.55-1.3); SGOT/AST 30 U/L (15-37); SGPT/ALT 62 U/L (13-61)
[2023-06-24 13:24] LABS: BILIRUBIN,TOTAL 0.3 mg/dL (0.2-1); TOT PROT 5.7 g/dl (6.4-8.2)
[2023-06-24 13:26] LABS: ALK PHOS 79 U/L (45-117)
[2023-06-24] MEDS: cloNIDine HCL 0.1 MG TABLET PO PRN (13:37)
[2023-06-24] MEDS: HYDROCHLOROTHIAZIDE 25 MG TABLET (FP) PO ONE (15:57)
[2023-06-25] MEDS: chlordiazePOXIDE HCL 25 MG CAPSULE PO SCH (06:00)
[2023-06-25] MEDS: amLODIPine BESYLATE 10 MG TABLET (FP) PO SCH (10:28)
[2023-06-25] MEDS: risperiDONE 2 MG TABLET PO SCH (22:40)
[2023-06-25] MEDS: metroNIDAZOLE 250 MG TABLET PO SCH (22:41)
[2023-06-25] MEDS: DIVALPROEX NA *ER* EXTEND REL 250 MG TABLET.SA PO SCH (22:41)
[2023-06-25] MEDS: BUDESONIDE/FORMETEROL FUMARATE 80/4.5 mcg INHALER IH SCH (22:42)
[2023-06-26] MEDS ORDERED: chlordiazePOXIDE HCL 10 MG CAPSULE PO PRN
[2023-06-26] MEDS: chlordiazePOXIDE HCL 10 MG CAPSULE PO SCH (05:13)
[2023-06-27] MEDS: chlordiazePOXIDE HCL 10 MG CAPSULE PO SCH (05:20)
[2023-06-28] MEDS: chlordiazePOXIDE HCL 10 MG CAPSULE PO ONE (06:00)
[2023-06-28] MEDS: HYDROCHLOROTHIAZIDE 12.5 MG CAPSULE (FP) PO SCH (10:07)
[2023-06-28] MEDS: ALBUTEROL SO4 HFA INHALER IH PRN (22:03)
[2023-06-29 12:50] VITALS: BP 146/89; PULSE 75; RESP 17; TEMP 97.3
== END 2023-06-29 14:08 | disposition other institution (70) | DRG 774 ==
LOC: YASAS 11:27 → Y6N 14:07
PROVIDERS: ADMIT Allergy & Immunology; ATTEND Surgery
PROC: HZ2ZZZZ Detoxification Services for Substance Abuse Treatment (ICD-10-PCS; principal; 2023-06-23)
DX: F10.230 Alcohol dependence with withdrawal, uncomplicated (principal); F14.20 Cocaine dependence, uncomplicated; F12.20 Cannabis dependence, uncomplicated; F17.210 Nicotine dependence, cigarettes, uncomplicated; F19.282 Other psychoactive substance dependence with psychoactive substance-induced sleep disorder; F25.0 Schizoaffective disorder, bipolar type; F41.9 Anxiety disorder, unspecified; F43.10 Post-traumatic stress disorder, unspecified; I10 Essential (primary) hypertension; J43.9 Emphysema, unspecified; J45.20 Mild intermittent asthma, uncomplicated; M54.32 Sciatica, left side; Z99.89 Dependence on other enabling machines and devices
CPT/HCPCS: 36415; 80053; 80305; 80307; 81025; 85027; 86780; 87635; 87811; 93005; 93010

== ENCOUNTER 2023-06-29 14:27 | Inpatient (IN) | payer OTHER ==
[~2023-06-29 14:27] MED LIST: ACETAMINOPHEN 325 MG TABLET (FP) PO PRN; ALBUTEROL SO4 HFA INHALER IH PRN; BENZOCAINE/MENTHOL (CHLORASEPTIC ) LOZENGE MM PRN; BENZONATATE 200 MG CAPSULE PO PRN; LOPERAMIDE HCL 2 MG CAPSULE PO PRN; METHOCARBAMOL 500 MG TABLET PO PRN; NICOTINE POLACRILEX 2 MG GUM BUC PRN; guaiFENesin 600 MG TABLET.ER (FP) PO PRN
[2023-06-29] MEDS: THIAMINE HCL 100 MG TABLET (FP) PO SCH (21:29)
[2023-06-29] MEDS: MELATONIN 5 MG TABLETS PO SCH (21:29)
[2023-06-29] MEDS: DIVALPROEX NA *ER* EXTEND REL 250 MG TABLET.SA PO SCH (21:29)
[2023-06-29] MEDS: BUDESONIDE/FORMETEROL FUMARATE 80/4.5 mcg INHALER IH SCH (21:29)
[2023-06-29] MEDS: risperiDONE 2 MG TABLET PO SCH (22:00)
[2023-06-30] MEDS: HYDROCHLOROTHIAZIDE 12.5 MG CAPSULE (FP) PO SCH (09:51)
[2023-06-30] MEDS: LOSARTAN POTASSIUM 50 MG TABLET PO SCH (09:51)
[2023-06-30] MEDS: PRENATAL VITAMINS W/ FOLIC ACID TABLET (FP) PO SCH (09:51)
[2023-06-30] MEDS: amLODIPine BESYLATE 10 MG TABLET (FP) PO SCH (09:51)
[2023-06-30] MEDS: NICOTINE 14 MG/24 HOURS TOPICAL PATCH TD SCH (09:52)
[2023-07-01] MEDS: hydrOXYzine PAMOATE 25 MG CAPSULE (FP) PO PRN (11:50)
[2023-07-01] MEDS: NALTREXONE HCL 50 MG TABLET PO ONE (17:31)
[2023-07-02] MEDS ORDERED: PNEUMOCOCCAL 23 VACCINE 0.5 ML VIAL IM ONE (10:00)
[2023-07-02 13:18] LABS: HIV INTERPRETATION NEGATIVE (NEGATIVE)
[2023-07-02] MEDS: PNEUMOCOCCAL 23 VACCINE 0.5 ML VIAL IM ONE (14:34)
[2023-07-03] MEDS: NALTREXONE HCL 50 MG TABLET PO SCH (11:57)
[2023-07-03] MEDS: PNEUMOC 20-VAL CONJ-DIP CRM/PF 0.5 ML SYRINGE IM ONE (11:57)
[2023-07-04] MEDS: MAGNESIUM HYDROX 2400MG/30ML ORAL SUSPENSION 30 ML CUP PO PRN (10:24)
[2023-07-06 16:27] LABS: URINE APPEARANCE CLEAR; URINE BILIRUBIN NEGATIVE (NEGATIVE); URINE COLOR YELLOW; URINE GLUCOSE (UA) NEGATIVE (NEGATIVE); URINE KETONE NEGATIVE (NEGATIVE); URINE LEUK ESTERASE NEGATIVE (NEGATIVE); URINE NITRITE NEGATIVE (NEGATIVE); URINE PROTEIN TRACE (NEGATIVE); URINE UROBILINOGEN 0.2 mg/dL (0.2-1.0)
[2023-07-10] MEDS: POLYETHYLENE GLYCOL (HEALTHYLAX) 3350 17 GM PACKET PO PRN (09:56)
[2023-07-14] MEDS: IBUPROFEN 600 MG TABLET (FP) PO PRN (08:54)
[2023-07-15 06:52] VITALS: RESP 18
[2023-07-16] MEDS: MAG HYDROX/AL HYDROX/SIMETH 30 ML UNIT-DOSE CUP PO PRN (07:04)
[2023-07-16] MEDS ORDERED: ONDANSETRON *ODT* 4 MG TABLET SL PRN (11:15)
[2023-07-17] MEDS: IBUPROFEN 400 MG TABLET (FP) PO PRN (21:52)
[2023-07-20 06:59] VITALS: BP 116/77; PULSE 68; TEMP 97.8
== END 2023-07-20 09:35 | disposition home or self-care (01) | DRG 772 ==
LOC: YASAS 14:27 → Y5N 14:28
PROVIDERS: ADMIT Allergy & Immunology; ATTEND Psychiatry & Neurology Pain Medicine
PROC: HZ42ZZZ Group Counseling for Substance Abuse Treatment, Cognitive-Behavioral (ICD-10-PCS; principal; 2023-06-29)
DX: F10.20 Alcohol dependence, uncomplicated (principal); F14.20 Cocaine dependence, uncomplicated; F12.20 Cannabis dependence, uncomplicated; F17.210 Nicotine dependence, cigarettes, uncomplicated; F25.9 Schizoaffective disorder, unspecified; F31.9 Bipolar disorder, unspecified; F43.10 Post-traumatic stress disorder, unspecified; F41.9 Anxiety disorder, unspecified; I10 Essential (primary) hypertension; J44.9 Chronic obstructive pulmonary disease, unspecified; M54.42 Lumbago with sciatica, left side; G89.29 Other chronic pain; Z91.51 Personal history of suicidal behavior
CPT/HCPCS: 36415; 80164; 81003; 82962; 86803; 87389; 90677